=== PATIENT | male | born 1980 | race Caucasian/White ===

== ENCOUNTER → 2018-02-03 16:28 | Outpatient (CLI) | payer OTHER, SELFPAY ==
--- NOTE | 2018-02-03 16:32 | DI.RAD.S_ITS ---
PROCEDURE: XR SHOULDER LT MIN 2V INDICATIONS: L shoulder pain TECHNIQUE: 3 views of the shoulder were acquired. COMPARISON: [facility], , SHOULDER MINIMUM 2VIEW RIGHT, 07/25/2015, 10:36. FINDINGS: Bones: No fractures or dislocations. No suspicious bony lesions. Visualized ribs appear intact. Soft tissues: No suspicious soft tissue calcifications. IMPRESSION: No acute osseous abnormality of the left shoulder. Dictated by: Brayan Chaidez M.D. on 02/03/2018 at 15:59 Approved by: Brayan Chaidez M.D. on 02/03/2018 at 16:00
== END ==
PROVIDERS: Visit Provider Physician Assistant
DX: M25.512 Pain in left shoulder (principal)
CPT/HCPCS: 73030

== ENCOUNTER → 2019-12-09 07:21 | Outpatient (CLI) | payer OTHER, MEDICAID, SELFPAY ==
[2019-12-09 08:15] LABS: Add Manual Diff / Slide Review NO; Basophils Absolute Auto 100 /uL (0-100); Basophils Percent Auto 1.1 % (0-2); Eosinophils Absolute Auto 300 /uL (0-450); Eosinophils Percent Auto 4.1 % (2-4); Hemoglobin 15.9 g/dL (13.5-17.5); Lymphocytes Absolute Auto 1800 /uL (1100-4500); Lymphocytes Percent Auto 27.7 % (25-40); Mean Corpuscular HGB Conc 33.9 % (30-36); Mean Corpuscular Hemoglobin 29.7 PG (26-34); Mean Corpuscular Volume 87.6 fL (80-100); Monocytes Absolute Auto 700 /uL (0-900); Neutrophils Absolute Auto 3800 /uL (1500-7000); Neutrophils Percent Auto 57.1 % (50-75); Platelet Count 195 X10^3/uL (150-400); Red Blood Cell Count 5.36 X10^6/uL (4.5-5.9); Red Cell Distribution Width 14.1 % (11.6-14.8); White Blood Cell Count 6.6 X10^3/uL (4.5-11.0)
[2019-12-09 08:33] LABS: Hemoglobin A1C% w Est Avg Glu 5.5 % (4.0-6.0)
[2019-12-09 08:38] LABS: Alanine Aminotransferase 47 IU/L (<50); Albumin 4.2 g/dL (3.5-5.0); Albumin Globulin Ratio 1.7 (1.0-2.8); Alkaline Phosphatase 54 U/L (38-126); Aspartate Aminotransferase 33 IU/L (17-59); BUN Creatinine Ratio 14.9 (6-22); Bilirubin Total 0.4 mg/dL (0.2-1.3); Blood Urea Nitrogen 15 mg/dL (9-20); Calcium 9.9 mg/dL (8.4-10.2); Carbon Dioxide 31 mmol/L (22-32); Chloride 103 mmol/L (98-107); Cholesterol 157 mg/dL (140-199); Estimated Glomerular Filt Rate > 60.0 mL/min (>60); Globulin 2.5 g/dL (1.7-4.1); Glucose 103 mg/dL (70-100); HDL Cholesterol 56 mg/dL (40-60); HEMOLYSIS < 15 (0-50); LDL Cholesterol Calculated 81 mg/dL (<100); Sodium 138 mmol/L (137-145); Total Protein 6.7 g/dL (6.3-8.2); Triglycerides 98 mg/dL (35-150)
[2019-12-09 09:01] LABS: TSH w/ Reflex to FT4 2.25 uIU/mL (0.47-4.68)
== END ==
PROVIDERS: PCP Family Medicine; Referring Provider Family Medicine; Visit Provider Family Medicine
DX: Z68.41 Body mass index [BMI] 40.0-44.9, adult (principal)
CPT/HCPCS: 36415; 80053; 80061; 83036; 84443; 85025

== ENCOUNTER 2020-02-16 11:42 | Emergency (ER) | payer OTHER, MEDICAID, SELFPAY ==
[2020-02-16 11:46] VITALS: BP 164/96; PULSE 116; RESP 16; TEMP 37.3; O2SAT 99; BMI 43.9
[2020-02-16 12:04] LABS: Add Manual Diff / Slide Review NO; Basophils Absolute Auto 0 /uL (0-100); Basophils Percent Auto 0.4 % (0-2); Eosinophils Absolute Auto 200 /uL (0-450); Eosinophils Percent Auto 1.6 % (2-4); Hematocrit 45.9 % (41-53); Lymphocytes Absolute Auto 1700 /uL (1100-4500); Lymphocytes Percent Auto 14.4 % (25-40); Mean Corpuscular HGB Conc 32.7 % (30-36); Mean Corpuscular Hemoglobin 28.7 PG (26-34); Mean Corpuscular Volume 87.8 fL (80-100); Monocytes Absolute Auto 1100 /uL (0-900); Monocytes Percent Auto 9.1 % (3-14); Neutrophils Absolute Auto 8700 /uL (1500-7000); Neutrophils Percent Auto 74.5 % (50-75); Platelet Count 210 X10^3/uL (150-400); Red Blood Cell Count 5.23 X10^6/uL (4.5-5.9); Red Cell Distribution Width 13.7 % (11.6-14.8); White Blood Cell Count 11.7 X10^3/uL (4.5-11.0)
[2020-02-16 12:07] LABS: INR 1.1 (0.9-1.3); Prothrombin Time 12.3 SECONDS (10.1-12.7)
[2020-02-16 12:10] LABS: PTT Partial Thromboplastin Tim 33 SECONDS (26.4-36.2)
[2020-02-16 12:12] LABS: Alanine Aminotransferase 41 IU/L (<50); Albumin Globulin Ratio 1.3 (1.0-2.8); Alkaline Phosphatase 59 U/L (38-126); Aspartate Aminotransferase 25 IU/L (17-59); BUN Creatinine Ratio 13.9 (6-22); Bilirubin Total 0.6 mg/dL (0.2-1.3); Blood Urea Nitrogen 14 mg/dL (9-20); Calcium 9.1 mg/dL (8.4-10.2); Carbon Dioxide 30 mmol/L (22-32); Chloride 102 mmol/L (98-107); Estimated Glomerular Filt Rate > 60.0 mL/min (>60); Globulin 3.2 g/dL (1.7-4.1); Glucose 116 mg/dL (70-100); HEMOLYSIS < 15 (0-50); Lipase 58 U/L (23-300); Potassium 3.9 mmol/L (3.4-5.1); Sodium 135 mmol/L (137-145); Total Protein 7.2 g/dL (6.3-8.2)
--- NOTE | 2020-02-16 13:08 | DI.CT.S_ITS ---
PROCEDURE: CT ABDOMEN PELVIS W CON INDICATIONS: llq pain, fever TECHNIQUE: After the administration of intravenous contrast, 5 mm thick sections acquired from the diaphragm to the symphysis. 5 mm coronal and sagittal reformats were acquired. For radiation dose reduction, the following was used: automated exposure control, adjustment of mA and/or kV according to patient size. COMPARISON: None. FINDINGS: Image quality: Excellent. ABDOMEN: Lung bases: Lung bases are clear. Heart size is normal. Solid organs: Liver is normal in size and enhancement. Gallbladder appears normal. Biliary system is non dilated. Pancreas enhances normally. Spleen is normal in size and enhancement. No adrenal nodules. Kidneys demonstrate normal size and enhancement, without hydronephrosis. Peritoneum and bowel: Bowel loops demonstrate normal wall thickness and caliber. No free fluid or air. Nodes and vessels: No retroperitoneal or mesenteric adenopathy by size criteria. Aorta and inferior vena cava are normal in size. Miscellaneous: No ventral hernias. PELVIS: Genitourinary: Bladder wall thickness is normal. Miscellaneous: No inguinal hernias or adenopathy. At the left lower quadrant involving the descending colon as it transitions into the proximal sigmoid colon there is mild mural thickening and pericolonic edema but no pericolonic abscess. The findings are characteristic for acute diverticulitis. Bones: No suspicious bony lesions. No vertebral body compression fractures. IMPRESSION: Acute diverticulitis without peridiverticular abscess left lower quadrant. No additional abnormality seen. Dictated by: Isaiah Pastor M.D. on 02/16/2020 at 13:35 Approved by: Isaiah Pastor M.D. on 02/16/2020 at 13:36
[2020-02-16] MEDS: KETOROLAC 60 MG/2 ML VIAL 30 MG IV (14:01)
[2020-02-16] MEDS: SODIUM CHLORIDE 0.9% 1,000 ML 1000 ML IV (14:01)
[2020-02-16] MEDS: ONDANSETRON 4 MG/2 ML INJ IV (14:03)
[2020-02-16] MEDS: CIPROFLOXACIN 500 MG TABLET PO (14:58)
[2020-02-16] MEDS: metroNIDAZOLE 500 MG TABLET PO (14:59)
[2020-02-16 15:02] VITALS: BP 137/89; PULSE 89; RESP 12; O2SAT 100
--- NOTE | 2020-02-16 15:22 | ED.ABDPAIN ---
HPI - Abdominal Pain <MARCO Harrington - Last Filed: 02/16/20 16:49> General Chief Complaint: Abdominal Pain Stated Complaint: thinks diverticulitis, sent by walk in Time Seen by Provider: 02/16/20 13:01 Source: patient Mode of arrival: Ambulatory Limitations: no limitations History of Present Illness HPI narrative: The patient is a 39-year-old male former her smoker denies any pertinent medical history presents with a chief complaint of left lower quadrant pain. This been ongoing since Friday. He had a transient temperature over the weekend up to 100 .1. He complains of nausea, no vomiting. He states he thought he was constipated then had some diarrhea after taking Dulcolax. He denies any muscle aches or chills. Denies any abdominal her story or surgical history. He does note that he has a family history of diverticulitis. The patient denies any chest pain or shortness of breath. He states that he is concerned that he might have a hernia, though thinks he might be too overweight to feel it. Related Data Previous Rx's Medication Instructions Recorded bupropion HCl 75 mg tablet 75 mg PO DAILY #30 tab 12/08/19 trazodone 50 mg tablet 25 mg PO .qhs #30 tab 12/14/19 ciprofloxacin HCl 500 mg PO BID #14 tab 02/16/20 hydrocodone-acetaminophen [[place]o] 1 tab PO Q4-6H PRN #10 tab 02/16/20 ketorolac 10 mg PO TID PRN #14 tab 02/16/20 metronidazole 500 mg PO TID 7 Days #21 tab 02/16/20 ondansetron 4 mg PO Q6H PRN #20 tab 02/16/20 Allergies Allergy/AdvReac Type Severity Reaction Status Date / Time milk [MILK] Allergy Unknown Verified 02/16/20 11:46 ICE CREAM Allergy Unknown Uncoded 01/06/20 08:33 Review of Systems <MARCO Harrington - Last Filed: 02/16/20 16:49> Review of Systems Narrative: GENERAL: Denies chills, fatigue, malaise, fever, sweats. HEENT: Denies sinus pain, ear pain, sore throat, difficulty swallowing, dizziness. RESPIRATORY: Denies dyspnea, cough, wheezing, hemoptysis, sputum. CARDIOVASCULAR: Denies chest pain, palpitations, orthopnea, edema, GASTROINTESTINAL: See HPI : Denies dysuria, frequency, incontinence, hematuria, urinary retention. MUSCULOSKELETAL: denies weakness, joint pain, or bony pain SKIN: Denies rash, skin lesions, or other NEUROLOGIC: Denies weakness, headache, numbness, change in speech, confusion, seizures, incoordination. PSYCHIATRIC: No concerning psychosocial issues. 12 point review of systems is negative except for those stated above Patient History <MARCO Harrington - Last Filed: 02/16/20 16:49> Medical History Ankle pain (Chronic ~2009) Anxiety (Chronic ~2003) BMI 40.0-44.9, adult (Acute) Chicken pox (Resolved ~1988) Chronic back pain (Chronic ~2013) Chronic pain of left ankle (Acute) Depression (Chronic ~2003) LLQ abdominal pain (Acute) Right ankle instability (Acute) Shoulder pain (Chronic ~2015) Family History Father No problems noted. Mother No problems noted. Social History Smoking Status: Former smoker alcohol intake: current substance use type: does not use Smoking Status: Former smoker alcohol intake frequency: holidays/special occasions only Substance Use Type: does not use Exam <MARCO Harrington - Last Filed: 02/16/20 16:49> Narrative Exam Narrative: GENERAL: This is a well-nourished, well-developed patient, in no acute distress HEAD: Atraumatic. Normocephalic. No temporal or scalp tenderness. EYES: Pupils equal round and reactive. Extraocular motions intact. No scleral icterus. No injection or drainage. ENT: Nose without bleeding, purulent drainage or septal hematoma. Throat without erythema, tonsillar hypertrophy or exudate. Uvula midline. Airway patent. NECK: Trachea midline. No JVD or lymphadenopathy. Supple, nontender, no meningeal signs. CARDIOVASCULAR: Regular rate and rhythm RESPIRATORY: Clear to auscultation. Breath sounds equal bilaterally. No wheezes, rales, or rhonchi. No cough. No increased respiratory effort. No accessory muscle use GASTROINTESTINAL: Abdomen soft, non-tender, pain to palpation left lower quadrant. No pain to palpation right lower quadrant. No hepato-splenomegaly, or palpable masses. Slight guarding left lower quadrant. Active bowel sounds all 4 quadrants. EXTREMITIES: No clubbing, cyanosis, or edema. No joint tenderness, effusion, or edema noted. BACK: Nontender without deformity or crepitance. No flank tenderness. NEURO: AOx3. SKIN: No rash or erythema on visible skin Initial Vital Signs Initial Vital Signs: Vital Signs Temperature 99.2 F 02/16/20 11:46 Pulse Rate 116 H 02/16/20 11:46 Respiratory Rate 16 02/16/20 11:46 Blood Pressure 164/96 H 02/16/20 11:46 Pulse Oximetry 99 02/16/20 11:46 <Darrell Zaldivar MD - Last Filed: 02/17/20 08:16> Initial Vital Signs Initial Vital Signs: Vital Signs Temperature 99.2 F 02/16/20 11:46 Pulse Rate 116 H 02/16/20 11:46 Respiratory Rate 16 02/16/20 11:46 Blood Pressure 164/96 H 02/16/20 11:46 Pulse Oximetry 99 02/16/20 11:46 Course <MARCO Harrington - Last Filed: 02/16/20 16:49> Orders Ordered: Discontinued Medications Ciprofloxacin (Cipro) 500 mg PO NOW ONE Stop: 02/16/20 14:32 Last Admin: 02/16/20 14:58 Dose: 500 mg Documented by: AZUL Sodium Chloride (Normal Saline 0.9%) 1,000 mls @ 1,000 mls/hr IV BOLUS ONE Stop: 02/16/20 14:53 Last Infusion: 02/16/20 14:59 Dose: 0 mls/hr Documented by: Admin: 02/16/20 14:01 Dose: 1,000 mls/hr Documented by: AZUL Ketorolac Tromethamine (Toradol) 30 mg IV NOW ONE Stop: 02/16/20 13:55 Last Admin: 02/16/20 14:01 Dose: 30 mg Documented by: AZUL Metronidazole (Metronidazole) 500 mg PO NOW ONE Stop: 02/16/20 14:32 Last Admin: 02/16/20 14:59 Dose: 500 mg Documented by: AZUL Ondansetron HCl (Zofran) 4 mg IV NOW ONE Stop: 02/16/20 14:02 Last Admin: 02/16/20 14:03 Dose: 4 mg Documented by: AZUL Vital Signs Vital signs: Vital Signs - 8 hr 02/16/20 11:46 02/16/20 15:02 02/16/20 16:11 Temperature 99.2 F Pulse Rate 116 H 89 90 Respiratory Rate 16 12 Blood Pressure 164/96 H 137/89 124/77 Pulse Oximetry 99 100 94 <Darrell Zaldivar MD - Last Filed: 02/17/20 08:16> Orders Ordered: Discontinued Medications Ciprofloxacin (Cipro) 500 mg PO NOW ONE Stop: 02/16/20 14:32 Last Admin: 02/16/20 14:58 Dose: 500 mg Documented by: AZUL Sodium Chloride (Normal Saline 0.9%) 1,000 mls @ 1,000 mls/hr IV BOLUS ONE Stop: 02/16/20 14:53 Last Infusion: 02/16/20 14:59 Dose: 0 mls/hr Documented by: Admin: 02/16/20 14:01 Dose: 1,000 mls/hr Documented by: AZUL Ketorolac Tromethamine (Toradol) 30 mg IV NOW ONE Stop: 02/16/20 13:55 Last Admin: 02/16/20 14:01 Dose: 30 mg Documented by: AZUL Metronidazole (Metronidazole) 500 mg PO NOW ONE Stop: 02/16/20 14:32 Last Admin: 02/16/20 14:59 Dose: 500 mg Documented by: AZUL Ondansetron HCl (Zofran) 4 mg IV NOW ONE Stop: 02/16/20 14:02 Last Admin: 02/16/20 14:03 Dose: 4 mg Documented by: AZUL Vital Signs Vital signs: Vital Signs - 8 hr 02/16/20 11:46 02/16/20 15:02 02/16/20 16:11 Temperature 99.2 F Pulse Rate 116 H 89 90 Respiratory Rate 16 12 Blood Pressure 164/96 H 137/89 124/77 Pulse Oximetry 99 100 94 MDM - Abdominal Pain <MARCO Harrington - Last Filed: 02/16/20 16:49> Lab Data Attestation: I reviewed the patient's lab results. Result diagrams: 02/16/20 11:53 02/16/20 11:53 Labs: Lab Results 02/16/20 02/16/20 02/16/20 Range/Units 11:53 11:53 11:53 WBC 11.7 H (4.5-11.0) X10^3/uL RBC 5.23 (4.5-5.9) X10^6/uL Hgb 15.0 (13.5-17.5) g/dL Hct 45.9 (41-53) % MCV 87.8 (80-100) fL MCH 28.7 (26-34) PG MCHC 32.7 (30-36) % RDW 13.7 (11.6-14.8) % Plt Count 210 (150-400) X10^3/uL Neut % (Auto) 74.5 (50-75) % Lymph % (Auto) 14.4 L (25-40) % [place] % (Auto) 9.1 (3-14) % Eos % (Auto) 1.6 L (2-4) % Baso % (Auto) 0.4 (0-2) % Neut # (Auto) 8700 H (0370-3256) /uL Lymph # (Auto) 1700 (5750-4257) /uL [place] # (Auto) 1100 H (0-900) /uL Eos # (Auto) 200 (0-450) /uL Baso # (Auto) 0 (0-100) /uL PT 12.3 (10.1-12.7) SECONDS INR 1.1 (0.9-1.3) APTT 33 (26.4-36.2) SECONDS Sodium 135 L (137-145) mmol/L Potassium 3.9 (3.4-5.1) mmol/L Chloride 102 (98-107) mmol/L Carbon Dioxide 30 (22-32) mmol/L BUN 14 (9-20) mg/dL Creatinine 1.01 (0.66-1.25) mg/dL Estimated GFR > 60.0 (>60) mL/min BUN/Creatinine Ratio 13.9 (6-22) Glucose 116 H (70-100) mg/dL Calcium 9.1 (8.4-10.2) mg/dL Total Bilirubin 0.6 (0.2-1.3) mg/dL AST 25 (17-59) IU/L ALT 41 (<50) IU/L Alkaline Phosphatase 59 (38-126) U/L Total Protein 7.2 (6.3-8.2) g/dL Albumin 4.0 (3.5-5.0) g/dL Globulin 3.2 (1.7-4.1) g/dL Albumin/Globulin Ratio 1.3 (1.0-2.8) Lipase 58 (23-300) U/L Imaging Data CT scan - abdomen/pelvis: Radiologist's Impression: [facility] [address] [place] [id number] Scan Report Signed Patient: Bruno Orozco PMR#: [id number] : 1980Acct:[id number] Age/Sex: 39 / MDate of Service: 02/16/20 Loc: ED Accession Number: [id number] Procedure: CT abdomen pelvis w con Ordering Provider: Rebecca Camacho [employer]LOBAL PROGRAM MANAGER- PROCEDURE: CT ABDOMEN PELVIS W CON INDICATIONS: llq pain, fever TECHNIQUE: After the administration of intravenous contrast, 5 mm thick sections acquired from the diaphragm to the symphysis. 5 mm coronal and sagittal reformats were acquired. For radiation dose reduction, the following was used: automated exposure control, adjustment of mA and/or kV according to patient size. COMPARISON: None. FINDINGS: Image quality: Excellent. ABDOMEN: Lung bases: Lung bases are clear. Heart size is normal. Solid organs: Liver is normal in size and enhancement. Gallbladder appears normal. Biliary system is non dilated. Pancreas enhances normally. Spleen is normal in size and enhancement. No adrenal nodules. Kidneys demonstrate normal size and enhancement, without hydronephrosis. Peritoneum and bowel: Bowel loops demonstrate normal wall thickness and caliber. No free fluid or air. Nodes and vessels: No retroperitoneal or mesenteric adenopathy by size criteria. Aorta and inferior vena cava are normal in size. Miscellaneous: No ventral hernias. PELVIS: Genitourinary: Bladder wall thickness is normal. Miscellaneous: No inguinal hernias or adenopathy. At the left lower quadrant involving the descending colon as it transitions into the proximal sigmoid colon there is mild mural thickening and pericolonic edema but no pericolonic abscess. The findings are characteristic for acute diverticulitis. Bones: No suspicious bony lesions. No vertebral body compression fractures. IMPRESSION: Acute diverticulitis without peridiverticular abscess left lower quadrant. No additional abnormality seen. Dictated by: Isaiah Pastor M.D. on 02/16/2020 at 13:35 Approved by: Isaiah Pastor M.D. on 02/16/2020 at 13:36 [facility] Narrative Medical decision making narrative: The patient is a 39-year-old male who presents with a chief complaint of left lower quadrant pain since Friday. He has slight leukocytosis to 11.7. He has had transient low-grade temperatures as well as stool changes. Given a pain to palpation left lower quadrant, CT was obtained to help evaluate for diverticulitis. This came back with acute diverticulitis with no evidence of abscess. Thus the patient was started on Flagyl and ciprofloxacin. I discussed at length not combining alcohol with the Flagyl, monitoring for tendon issues with the Cipro. Discussed the black box warning of possible tendon inflammation, tendonitis or tendon rupture. Patient like to proceed with Flagyl/Cipro therapy. Patient was given Toradol and Zofran in the emergency department, was given small prescription of [place]o. Encouraged follow-up with primary care provider in the next 48-72 hours as well as come back to the ER for acute concerns such as inability keep down fluids abdominal pain with high fevers etcetera. Discussed dietary changes at length. Patient has no questions or concerns upon discharge and states understanding return precautions as well as follow-up care with primary care provider. Patient is able to tolerate p.o. antibiotics as well as fluids prior to discharge. He appears well and nontoxic throughout his stay in the ER. <Darrell Zaldivar MD - Last Filed: 02/17/20 08:16> Lab Data Labs: Lab Results 02/16/20 02/16/20 02/16/20 Range/Units 11:53 11:53 11:53 WBC 11.7 H (4.5-11.0) X10^3/uL RBC 5.23 (4.5-5.9) X10^6/uL Hgb 15.0 (13.5-17.5) g/dL Hct 45.9 (41-53) % MCV 87.8 (80-100) fL MCH 28.7 (26-34) PG MCHC 32.7 (30-36) % RDW 13.7 (11.6-14.8) % Plt Count 210 (150-400) X10^3/uL Neut % (Auto) 74.5 (50-75) % Lymph % (Auto) 14.4 L (25-40) % [place] % (Auto) 9.1 (3-14) % Eos % (Auto) 1.6 L (2-4) % Baso % (Auto) 0.4 (0-2) % Neut # (Auto) 8700 H (3571-8218) /uL Lymph # (Auto) 1700 (3552-3479) /uL [place] # (Auto) 1100 H (0-900) /uL Eos # (Auto) 200 (0-450) /uL Baso # (Auto) 0 (0-100) /uL PT 12.3 (10.1-12.7) SECONDS INR 1.1 (0.9-1.3) APTT 33 (26.4-36.2) SECONDS Sodium 135 L (137-145) mmol/L Potassium 3.9 (3.4-5.1) mmol/L Chloride 102 (98-107) mmol/L Carbon Dioxide 30 (22-32) mmol/L BUN 14 (9-20) mg/dL Creatinine 1.01 (0.66-1.25) mg/dL Estimated GFR > 60.0 (>60) mL/min BUN/Creatinine Ratio 13.9 (6-22) Glucose 116 H (70-100) mg/dL Calcium 9.1 (8.4-10.2) mg/dL Total Bilirubin 0.6 (0.2-1.3) mg/dL AST 25 (17-59) IU/L ALT 41 (<50) IU/L Alkaline Phosphatase 59 (38-126) U/L Total Protein 7.2 (6.3-8.2) g/dL Albumin 4.0 (3.5-5.0) g/dL Globulin 3.2 (1.7-4.1) g/dL Albumin/Globulin Ratio 1.3 (1.0-2.8) Lipase 58 (23-300) U/L Discharge Plan Departure Patient Disposition: Home Clinical Impression: Diverticulitis Discharge Date/Time: 02/16/20 16:11 Instructions: Diverticulitis (Alternative Therapy), DI for Diverticulitis, DI for Abdominal Pain-Adult Activity Restrictions/Additional Instructions: Thank you for trusting us with your care today. As discussed, you have diverticulitis. I sent 5 prescriptions to [facility]. This includes 2 different antibiotics. Do not drink alcohol on metronidazole. As discussed, please monitor for tendon pain on the ciprofloxacin. You take both antibiotics. I also sent Toradol or ketorolac for pain, as well as hydrocodone/Tylenol for pain I have given you a prescription of Toradol. This is an NSAID. Do not combine it with other NSAIDs such as Aleve or ibuprofen. I suggest taking it with some food, as it can irritate your stomach. I have given you a prescription of a narcotic for pain. Be aware that this can be constipating and sedating. I encouraged taking with a stool softener, pushing fluids and fiber. Do not take and drive, operate heavy machinery, etc. Do not combine it with any other sedating substances such as alcohol. The combination of narcotics and alcohol and/or other sedatives can be lethal. Please follow-up with primary care provider next 48-72 hours. As discussed, please come back to the emergency department for any acute concerns such as abdominal pain with fever, inability keep down fluids etcetera. Please start with a very light, clear liquid diet. Progress as able, but avoid deep fried fatty foods, spicy foods, citrus foods as these can all irritate your stomach. Prescriptions: New ondansetron 4 mg tablet,disintegrating 4 mg PO Q6H PRN (Reason: nausea and vomiting) Qty: 20 RF: 0 ketorolac 10 mg tablet 10 mg PO TID PRN (Reason: pain) Qty: 14 RF: 0 ciprofloxacin HCl 500 mg tablet 500 mg PO BID Qty: 14 RF: 0 metronidazole 500 mg tablet 500 mg PO TID 7 Days Qty: 21 RF: 0 hydrocodone-acetaminophen [[place]o] 5-325 mg tablet 1 tab PO Q4-6H PRN (Reason: pain) Qty: 10 RF: 0 No Action bupropion HCl 75 mg tablet 75 mg PO DAILY Qty: 30 RF: 1 trazodone 50 mg tablet 25 mg PO .qhs Qty: 30 RF: 0 Referrals: Maxwell,Ronny, DO [Primary Care Provider] - <Darrell Zaldivar MD - Last Filed: 02/17/20 08:16> Cosign ED Attending Cosignature Attestation: I was immediately available in the department for consultation. This documentation has been reviewed and I agree with assessment and plan. Supervised by Darrell Zaldivar MD
[2020-02-16 16:11] VITALS: BP 124/77; PULSE 90; O2SAT 94
== END 2020-02-16 16:11 | disposition home or self-care (01) ==
PROVIDERS: Emergency Medicine; Emergency Provider Nurse Practitioner Family; PCP Family Medicine
DX: K57.92 Diverticulitis of intestine, part unspecified, without perforation or abscess without bleeding (principal); R11.0 Nausea; R50.9 Fever, unspecified
CPT/HCPCS: 36415; 74177; 80053; 83690; 85025; 85610; 85730; 93005; 96361; 96374; 96375; 99284; J1885; J2405; Q9967

== ENCOUNTER → 2020-07-05 11:48 | Outpatient (CLI) | payer OTHER, MEDICAID, SELFPAY ==
--- NOTE | 2020-07-05 11:50 | DI.RAD.S_ITS ---
PROCEDURE: XR KNEE LT 3V INDICATIONS: LT knee pain TECHNIQUE: 3 views of the knee were acquired. COMPARISON: None. FINDINGS: Bones: No fractures or dislocations. No suspicious bony lesions. Minimal medial compartment narrowing, suggestive of early degenerative change. Soft tissues: Prominent joint effusion. No suspicious soft tissue calcifications. IMPRESSION: Prominent effusion. No visualized acute fracture or dislocation. However, if clinical concern and/or pain persist, short interval imaging followup in 7-10 days is recommended, as occult injury cannot be definitively excluded. Dictated by: Bettie Villalta M.D. on 07/05/2020 at 17:37 Approved by: Bettie Villalta M.D. on 07/05/2020 at 17:37
== END ==
PROVIDERS: PCP Family Medicine; Referring Provider Family Medicine; Visit Provider Family Medicine
DX: M25.562 Pain in left knee (principal); M25.462 Effusion, left knee
CPT/HCPCS: 73562

== ENCOUNTER → 2021-06-15 08:25 | Outpatient (CLI) | payer OTHER, MEDICAID, SELFPAY ==
--- NOTE | 2021-06-15 08:27 | DI.RAD.S_ITS ---
PROCEDURE: XR ANKLE RT MIN 3V INDICATIONS: pain TECHNIQUE: 3 views of the ankle were acquired. COMPARISON: [facility], , ANKLE 3 VIEWS LEFT, 08/30/2013, 20:25. FINDINGS: Bones: No fractures or dislocations. Ankle mortise is normally aligned. No suspicious bony lesions. Small plantar calcaneal enthesophyte. Soft tissues: Small tibiotalar joint effusion. Diffuse edema. IMPRESSION: No acute osseous abnormality. Dictated by: Haja Pedraza M.D. on 06/15/2021 at 9:15 Approved by: Haja Pedraza M.D. on 06/15/2021 at 9:17
== END ==
PROVIDERS: PCP Family Medicine; Referring Provider Family Medicine; Visit Provider Family Medicine
DX: S93.401A Sprain of unspecified ligament of right ankle, initial encounter (principal); X58.XXXA Exposure to other specified factors, initial encounter
CPT/HCPCS: 73610

== ENCOUNTER 2021-08-30 10:30 | Outpatient (RCR) | payer OTHER, MEDICAID, SELFPAY ==
--- NOTE | 2021-07-17 15:48 | PT.OIE ---
Current Diagnoses Sprain of unspecified ligament of right ankle, initial encounter (07/17/21) Past Medical History (Last Updated 06/15/21 @ 08:18 by Ronny Arreola DO) Acute pain of left knee Ankle pain (~2009) Anxiety (~2003) BMI 40.0-44.9, adult Chicken pox (~1988) Chronic back pain (~2013) Chronic pain of left ankle Constipation Depression (~2003) Diverticulitis Knee effusion, left Right ankle instability Right ankle sprain Shoulder pain (~2015) Visit Care Team Role Provider Type Ronny Arreola DO Attending Provider Physician Family Provider Primary Care Provider Referring Provider Specialty: [facility] Practice Address: [address] [place] [address], [facility] Email: Physical Therapy Initial Evaluation PT-OP-A Visit Information Start: 07/10/21 12:28 Freq: Status: Active Protocol: Document 07/17/21 07:32 AMB (Rec: 07/17/21 08:21 AMB [id number]) Out-Patient Physical Therapy Visit Information Visit Information Visit Type Treatment Note Visit Note 24 treatment units Visit Start Time 07:30 Visit Stop Time 08:15 Total Visit Minutes 45 Visit Number 1 PT-OP-B Current Condition Start: 07/10/21 12:28 Freq: Status: Active Protocol: Document 07/17/21 07:32 AMB (Rec: 07/17/21 08:21 AMB [id number]) Current Condition History of Current Condition Onset Date 1.5 months ago Current Complaints R ankle pain s/p sprain History of Current Condition Sitting cross legged, driving pushing the gas pedal, working out all increase Bruno' pain. He had significant swelling after twisting his ankle while stepping off of a curb, and has not been able to return to his prior level of function of walking the dog due to continued pain. He does have history of prior ankle sprains , especially on the left side. Treatment Goals Patient/Caregiver Goals Be able to walk/sit down on the floor/stand up/workout without ankle pain. Prior Functional Status Baseline Function- ADL's Independent Baseline Function- Mobility Independent Current Functional Impairments (Reported) Functional Limitations- ADL's Pain with ambulation and advanced transfers, having to modify workout due to ankle pain Personal Factors Other Personal Factors That May Effect BMI 40-45 Therapy/Recovery PT-OP-C Subjective Start: 07/10/21 12:28 Freq: Status: Active Protocol: Document 07/17/21 07:30 AMB (Rec: 07/17/21 12:01 AMB [id number]) Patient Questionnaires Lower Extremity Functional Scale LEFS Score 23 PT-OP-D Balance Start: 07/10/21 12:28 Freq: Status: Active Protocol: Document 07/17/21 07:30 AMB (Rec: 07/17/21 12:01 AMB [id number]) OP-PT Balance Assessment Standing Balance Standing Balance Comments single leg stance limited to 2 sec on R, 5-7 sec on L. pain limits Greer Fall Scale Copyright Permission PT-OP-F Manual Assessment Start: 07/10/21 12:28 Freq: Status: Active Protocol: Document 07/17/21 07:30 AMB (Rec: 07/17/21 13:01 AMB [id number]) Manual Assessments Soft Tissue Assessment Soft Tissue Mobility Assessment Tenderness over ATFL and into fibularis muscles. Swelling throughout ankle, pt does report some tenderness over achilles with heel raise. PT-OP-G Mobility & Gait Start: 07/10/21 12:28 Freq: Status: Active Protocol: Document 07/17/21 07:30 AMB (Rec: 07/17/21 12:01 AMB [id number]) OP Gait Assessment Comments Gait Comments Decreased push off on the right during terminal stance. PT-OP-J Posture/Palpation/Skin Start: 07/10/21 12:28 Freq: Status: Active Protocol: Document 07/17/21 07:30 AMB (Rec: 07/17/21 12:01 AMB [id number]) Skin Assessment Circumference Measurement 2 Location R ankle Measurement (Centimeters) 30 1 Location L ankle Measurement (Centimeters) 29 PT-OP-K Range of Motion Start: 07/10/21 12:28 Freq: Status: Active Protocol: Document 07/17/21 07:30 AMB (Rec: 07/17/21 12:01 AMB [id number]) Ankle and Foot Goniometric Range of Motion Ankle and Foot Right Passive Testing Position Sitting Dorsiflexion with Knee Flexed 5 Plantarflexion 50 Inversion 30 Eversion 5 Left Passive Testing Position Sitting Dorsiflexion with Knee Flexed 8 Plantarflexion 50 Inversion 30 Eversion 20 PT-OP-M Strength Start: 07/10/21 12:28 Freq: Status: Active Protocol: Document 07/17/21 07:30 AMB (Rec: 07/17/21 13:01 AMB [id number]) Ankle/Foot Strength Ankle and Foot Manual Muscle Testing Right Dorsiflexion (L4) 4 Good Plantarflexion (S1) 4 Good Inversion 4 Good Eversion (S1) 4- Good- Left Dorsiflexion (L4) 5 Normal Plantarflexion (S1) 4+ Good+ Inversion 5 Normal Eversion (S1) 5 Normal PT-OP-Q Treatments Start: 07/10/21 12:28 Freq: Status: Active Protocol: Document 07/17/21 07:30 AMB (Rec: 07/17/21 15:43 AMB [id number]) Therapeutic Exercises Sitting Exercises 1 Sitting Exercise Name AROM inversion and eversion Reps/Minutes 2x20 PT-OP-T Assessment and Plan Start: 07/10/21 12:28 Freq: Status: Active Protocol: Document 07/17/21 07:30 AMB (Rec: 07/17/21 13:01 AMB [id number]) Physical Therapy Assessment Rehab Potential Rehabilitation Potential Good Evaluation Complexity Number of Personal Factors/Comorbidities 1-2 Number of Body Systems Impaired 4 or More Clinical Presentation at Evaluation Stable Impairments Impairments Activity Tolerance,Balance, Edema,Functional Activities, Gait,Pain,ROM,Strength Goals balance Mcc Goal (LTG) Bruno will balance on his right foot for 15 seconds or greater. LTG Duration 8 weeks transfers Short Term Goal (STG) Bruno will perform a floor transfer with 2/10 ankle pain or less. STG Duration 4 weeks Mcc Goal (LTG) Bruno will sit cross legged on the floor for 10 minutes without ankle pain so that he can play with his children. LTG Duration 8 weeks Two Impairment pain Short Term Goal (STG) Bruno will ambulate over gravel/grass/curbs for 10 minutes without an increase in his baseline pain. STG Duration 4 weeks Change Coordinator Goal (LTG) Bruno will don/doff his socks and shoes without an increase in pain. LTG Duration 8 weeks One Impairment ROM Short Term Goal (STG) Bruno will improve his pain free ankle eversion to at least 15 degrees. STG Duration 4 weeks Assessment Summary Assessment Bruno attends physical therapy with a recent ankle sprain and continued pain over ATFL and into his fibularis muscles /tendons. He has a history of chronic ankle sprains bilaterally. He continues to have pain with any activities that require even small mediolateral movements like donning/doffing shoes, single leg balance, and ambulating over uneven surfaces. He continues to have swelling, pain, ROM restriction and weakness in the ankle. He will benefit from physical therapy to address the above impairments. Physical Therapy Plan Frequency and Duration Frequency of Treatment 2x/Week Duration of Treatment 8 weeks Plan of Care Start Date 07/17/21 Plan of Care End Date 09/11/21 Therapeutic Interventions Therapeutic Interventions Balance Training,Gait Training ,Home Exercise Program,Joint Mobilizations,Manual Therapy, Neuromuscular Re-education, Self-Care/Home Management,Soft Tissue Mobilization, Therapeutic Activities, Therapeutic Exercises Modalities Cold Pack/Ice Massage,Electric Stimulation,Hot Packs Next Visit Focus/Plan Next Note Type Treatment Note Next Visit Plan Review AROM HEP, continue to encourage edema management, progress balance, can try T band resistance if tolerated.
--- NOTE | 2021-07-17 15:50 | PT.OPPOC ---
Physical, Occupational & Speech Therapy At [facility] Current Diagnoses Sprain of unspecified ligament of right ankle, initial encounter (07/17/21) Visit Care Team Role Provider Type Ronny Arreola DO Attending Provider Physician Family Provider Primary Care Provider Referring Provider Specialty: Family Practice Address: [address] [place] [address], [facility] Email: Plan Of Care PT-OP-T Assessment and Plan Start: 07/10/21 12:28 Freq: Status: Active Protocol: Document 07/17/21 07:30 AMB (Rec: 07/17/21 13:01 AMB [id number]) Physical Therapy Assessment Rehab Potential Rehabilitation Potential Good Evaluation Complexity Number of Personal Factors/Comorbidities 1-2 Number of Body Systems Impaired 4 or More Clinical Presentation at Evaluation Stable Impairments Impairments Activity Tolerance,Balance, Edema,Functional Activities, Gait,Pain,ROM,Strength Goals balance Manager Combination Goal (LTG) Bruno will balance on his right foot for 15 seconds or greater. LTG Duration 8 weeks transfers Short Term Goal (STG) Bruno will perform a floor transfer with 2/10 ankle pain or less. STG Duration 4 weeks Manager Combination Goal (LTG) Bruno will sit cross legged on the floor for 10 minutes without ankle pain so that he can play with his children. LTG Duration 8 weeks Two Impairment pain Short Term Goal (STG) Bruno will ambulate over gravel/grass/curbs for 10 minutes without an increase in his baseline pain. STG Duration 4 weeks Penitentiary Goal (LTG) Bruno will don/doff his socks and shoes without an increase in pain. LTG Duration 8 weeks One Impairment ROM Short Term Goal (STG) Bruno will improve his pain free ankle eversion to at least 15 degrees. STG Duration 4 weeks Assessment Summary Assessment Bruno attends physical therapy with a recent ankle sprain and continued pain over ATFL and into his fibularis muscles /tendons. He has a history of chronic ankle sprains bilaterally. He continues to have pain with any activities that require even small mediolateral movements like donning/doffing shoes, single leg balance, and ambulating over uneven surfaces. He continues to have swelling, pain, ROM restriction and weakness in the ankle. He will benefit from physical therapy to address the above impairments. Physical Therapy Plan Frequency and Duration Frequency of Treatment 2x/Week Duration of Treatment 8 weeks Plan of Care Start Date 07/17/21 Plan of Care End Date 09/11/21 Therapeutic Interventions Therapeutic Interventions Balance Training,Gait Training ,Home Exercise Program,Joint Mobilizations,Manual Therapy, Neuromuscular Re-education, Self-Care/Home Management,Soft Tissue Mobilization, Therapeutic Activities, Therapeutic Exercises Modalities Cold Pack/Ice Massage,Electric Stimulation,Hot Packs Next Visit Focus/Plan Next Note Type Treatment Note Next Visit Plan Review AROM HEP, continue to encourage edema management, progress balance, can try T band resistance if tolerated. Plan of Care Dates Plan of Care Start Date 07/17/21 Plan of Care End Date 09/11/21 Electronically Signed by: Tg Zapata, PT 07/17/21 [id number] Please Sign and Return: I have reviewed this Plan of Care and certify that the skilled therapy services above are required to meet the patient?s needs. Physician Signature Date Printed Name and Credentials Clinical Instructor Signature Printed Name and Credentials
--- NOTE | 2021-07-20 08:20 | PT.OTN ---
Current Diagnoses Sprain of unspecified ligament of right ankle, initial encounter (07/20/21) Physical Therapy Treatment Note PT-OP-A Visit Information Start: 07/10/21 12:28 Freq: Status: Active Protocol: Document 07/20/21 07:31 SP (Rec: 07/20/21 08:17 SP [id number]) Out-Patient Physical Therapy Visit Information Visit Information Visit Type Treatment Note Visit Start Time 07:31 Visit Stop Time 08:20 Total Visit Minutes 49 Visit Number 2 Number of FILTER SCREEN CLEANER Visits 1 PT-OP-B Current Condition Start: 07/10/21 12:28 Freq: Status: Active Protocol: Document 07/17/21 07:32 AMB (Rec: 07/17/21 08:21 AMB [id number]) Current Condition History of Current Condition Onset Date 1.5 months ago Current Complaints R ankle pain s/p sprain History of Current Condition Sitting cross legged, driving pushing the gas pedal, working out all increase Bruno' pain. He had significant swelling after twisting his ankle while stepping off of a curb, and has not been able to return to his prior level of function of walking the dog due to continued pain. He does have history of prior ankle sprains , especially on the left side. Treatment Goals Patient/Caregiver Goals Be able to walk/sit down on the floor/stand up/workout without ankle pain. 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 Compliant with R ankle ROM HEP IV/EV stated still feels painful but not worse with exercises, pain worse when doing gets out of car or when performs twisting motions. States doesn'st use ice at home but does elevate ankle end of day. PT-OP-D Balance Start: 07/10/21 12:28 Freq: Status: Active Protocol: Document 07/17/21 07:30 AMB (Rec: 07/17/21 12:01 AMB [id number]) OP-PT Balance Assessment Standing Balance Standing Balance Comments single leg stance limited to 2 sec on R, 5-7 sec on L. pain limits Greer Fall Scale Copyright Permission PT-OP-F Manual Assessment Start: 07/10/21 12:28 Freq: Status: Active Protocol: Document 07/17/21 07:30 AMB (Rec: 07/17/21 13:01 AMB [id number]) Manual Assessments Soft Tissue Assessment Soft Tissue Mobility Assessment Tenderness over ATFL and into fibularis muscles. Swelling thorought ankle, pt does report some tenderness over achilles with heel raise. PT-OP-G Mobility & Gait Start: 07/10/21 12:28 Freq: Status: Active Protocol: Document 07/17/21 07:30 AMB (Rec: 07/17/21 12:01 AMB [id number]) OP Gait Assessment Comments Gait Comments Decreased push off on the right during terminal stance. PT-OP-J Posture/Palpation/Skin Start: 07/10/21 12:28 Freq: Status: Active Protocol: Document 07/17/21 07:30 AMB (Rec: 07/17/21 12:01 AMB [id number]) Skin Assessment Circumference Measurement 2 Location R ankle Measurement (Centimeters) 30 1 Location L ankle Measurement (Centimeters) 29 PT-OP-K Range of Motion Start: 07/10/21 12:28 Freq: Status: Active Protocol: Document 07/17/21 07:30 AMB (Rec: 07/17/21 12:01 AMB [id number]) Ankle and Foot Goniometric Range of Motion Ankle and Foot Right Passive Testing Position Sitting Dorsiflexion with Knee Flexed 5 Plantarflexion 50 Inversion 30 Eversion 5 Left Passive Testing Position Sitting Dorsiflexion with Knee Flexed 8 Plantarflexion 50 Inversion 30 Eversion 20 PT-OP-M Strength Start: 07/10/21 12:28 Freq: Status: Active Protocol: Document 07/17/21 07:30 AMB (Rec: 07/17/21 13:01 AMB [id number]) Ankle/Foot Strength Ankle and Foot Manual Muscle Testing Right Dorsiflexion (L4) 4 Good Plantarflexion (S1) 4 Good Inversion 4 Good Eversion (S1) 4- Good- Left Dorsiflexion (L4) 5 Normal Plantarflexion (S1) 4+ Good+ Inversion 5 Normal Eversion (S1) 5 Normal PT-OP-Q Treatments Start: 07/10/21 12:28 Freq: Status: Active Protocol: Document 07/20/21 07:31 SP (Rec: 07/20/21 08:17 SP [id number]) Therapeutic Exercises Sitting Exercises 4 way ankle Sitting Exercise Name PF, DF, IV, EV-added to HEP Side right Resistance TB #1 Reps/Minutes x10 each if tolerated Comments cued slow eccentric return, pain increased w/ IV TB so hold this direction arch lift Sitting Exercise Name added to HEP Side right Reps/Minutes 5 sec hold x10 Comments ok response, not worse pain. BAPS Sitting Exercise Name DF/PF, IV/ EV- added to HEP over tennis ball assimulation Side right Resistance Lvl 3 Equipment Used BAPS Reps/Minutes x10 reps each direction Comments cued slow pacing quality movement, not pain limited EV 1 Sitting Exercise Name AROM inversion and eversion Side right Reps/Minutes x10 review Comments no increase pain. Manual Therapy Treatment Joint Mobilizations ankle mobs Joint R talocrual PA, calcaneus Med/ Lat, 1-5 MTPs PA Grade II Body Position Sitting Comments fair feedback response feels ok, improved ankle EV ROM during BAPS post manual Taping K taping R ankle Body Location R lateral ankle Treatment Focus support EV Type of Tape Kinesio Tape Skin Inspection normal color/texture Comments stable lateral ankle, assist peroneal musculature, good feedback response, understands can remove in 1- 4 days if response well- understands adverse affects: reddness, itching response and remove if experiences. Has had on shoulder in past and did well/ helpful. Self-Care/Home Management Treatment Education Patient Education Home Exercise Program,Pain Management Other Education FILTER SCREEN CLEANER educated use of CP for assist with pain mgt and elevation to support swelling mgt when can work into his day , verbalized understanding. PT-OP-R Modalities Start: 07/10/21 12:28 Freq: Status: Active Protocol: Document 07/20/21 07:31 SP (Rec: 07/20/21 08:17 SP [id number]) Hot Pack/Cold Pack Treatment CP Location R ankle PT-OP-T Assessment and Plan Start: 07/10/21 12:28 Freq: Status: Active Protocol: Document 07/20/21 07:31 SP (Rec: 07/20/21 08:17 SP [id number]) Physical Therapy Assessment Goals balance Detention Goal (LTG) Bruno will balance on his right foot for 15 seconds or greater. LTG Duration 8 weeks transfers Short Term Goal (STG) Bruno will perform a floor transfer with 2/10 ankle pain or less. STG Duration 4 weeks Detention Goal (LTG) Bruno will sit cross legged on the floor for 10 minutes without ankle pain so that he can play with his children. LTG Duration 8 weeks Two Impairment pain Short Term Goal (STG) Bruno will ambulate over gravel/grass/curbs for 10 minutes without an increase in his baseline pain. STG Duration 4 weeks Detention Goal (LTG) Bruno will don/doff his socks and shoes without an increase in pain. LTG Duration 8 weeks One Impairment ROM Short Term Goal (STG) Bruno will improve his pain free ankle eversion to at least 15 degrees. STG Duration 4 weeks Assessment Summary Assessment Pt fair response to ther ex, no worse pain with ther ex except R ankle IV so instructed to hold this direction for now. Initiated arch lift, TB and BAPS (over tennis ball) slow controlled motion for strengthening initiation with fair response. Responded well to CP and verbalized within corporate at home for pain and swelling mgt. Physical Therapy Plan Frequency and Duration Frequency of Treatment 2x/Week Duration of Treatment 8 weeks Plan of Care Start Date 07/17/21 Plan of Care End Date 09/11/21 Therapeutic Interventions Therapeutic Interventions Balance Training,Gait Training ,Home Exercise Program,Joint Mobilizations,Manual Therapy, Neuromuscular Re-education, Self-Care/Home Management,Soft Tissue Mobilization, Therapeutic Activities, Therapeutic Exercises Modalities Cold Pack/Ice Massage,Electric Stimulation,Hot Packs Next Visit Focus/Plan Next Note Type Treatment Note Next Visit Plan Review HEP, including response to added arch lift and TB added last tx. POC: Continue to encourage edema management, progress balance.
--- NOTE | 2021-07-24 08:17 | PT.OTN ---
Current Diagnoses Sprain of unspecified ligament of right ankle, initial encounter (07/24/21) Physical Therapy Treatment Note PT-OP-A Visit Information Start: 07/10/21 12:28 Freq: Status: Active Protocol: Document 07/24/21 07:31 SP (Rec: 07/24/21 08:16 SP [id number]) Out-Patient Physical Therapy Visit Information Visit Information Visit Type Treatment Note Visit Start Time 07:31 Visit Stop Time 08:17 Total Visit Minutes 44 Visit Number 3 Number of KNITTING TESTER Visits 2 PT-OP-B Current Condition Start: 07/10/21 12:28 Freq: Status: Active Protocol: Document 07/17/21 07:32 AMB (Rec: 07/17/21 08:21 AMB [id number]) Current Condition History of Current Condition Onset Date 1.5 months ago Current Complaints R ankle pain s/p sprain History of Current Condition Sitting cross legged, driving pushing the gas pedal, working out all increase Bruno' pain. He had significant swelling after twisting his ankle while stepping off of a curb, and has not been able to return to his prior level of function of walking the dog due to continued pain. He does have history of prior ankle sprains , especially on the left side. Treatment Goals Patient/Caregiver Goals Be able to walk/sit down on the floor/stand up/workout without ankle pain. Prior Functional Status Baseline Function- ADL's Independent Baseline Function- Mobility Independent Current Functional Impairments (Reported) Functional Limitations- ADL's Pain with ambulation and advanced transfers, having to modify workout due to ankle pain Personal Factors Other Personal Factors That May Effect BMI 40-45 Therapy/Recovery PT-OP-C Subjective Start: 07/10/21 12:28 Freq: Status: Active Protocol: Document 07/24/21 07:31 SP (Rec: 07/24/21 08:16 SP [id number]) OP-PT Subjective Patient Comments Patient Comments Pt reports doing better overall. The new exercises do hurt but feel helpful. Compliant with HEP at least 1x /day. Pain always idles about 3-4/10 but more when gets out of car, even just sitting hurts. Can tell when on feet more. Pt reports no adverse affects to K taping and found was helpful,would like reapplied, came off in shower. PT-OP-D Balance Start: 07/10/21 12:28 Freq: Status: Active Protocol: Document 07/17/21 07:30 AMB (Rec: 07/17/21 12:01 AMB [id number]) OP-PT Balance Assessment Standing Balance Standing Balance Comments single leg stance limited to 2 sec on R, 5-7 sec on L. pain limits Greer Fall Scale Copyright Permission PT-OP-F Manual Assessment Start: 07/10/21 12:28 Freq: Status: Active Protocol: Document 07/17/21 07:30 AMB (Rec: 07/17/21 13:01 AMB [id number]) Manual Assessments Soft Tissue Assessment Soft Tissue Mobility Assessment Tenderness over ATFL and into fibularis muscles. Swelling thorought ankle, pt does report some tenderness over achilles with heel raise. PT-OP-G Mobility & Gait Start: 07/10/21 12:28 Freq: Status: Active Protocol: Document 07/17/21 07:30 AMB (Rec: 07/17/21 12:01 AMB [id number]) OP Gait Assessment Comments Gait Comments Decreased push off on the right during terminal stance. PT-OP-J Posture/Palpation/Skin Start: 07/10/21 12:28 Freq: Status: Active Protocol: Document 07/17/21 07:30 AMB (Rec: 07/17/21 12:01 AMB [id number]) Skin Assessment Circumference Measurement 2 Location R ankle Measurement (Centimeters) 30 1 Location L ankle Measurement (Centimeters) 29 PT-OP-K Range of Motion Start: 07/10/21 12:28 Freq: Status: Active Protocol: Document 07/17/21 07:30 AMB (Rec: 07/17/21 12:01 AMB [id number]) Ankle and Foot Goniometric Range of Motion Ankle and Foot Right Passive Testing Position Sitting Dorsiflexion with Knee Flexed 5 Plantarflexion 50 Inversion 30 Eversion 5 Left Passive Testing Position Sitting Dorsiflexion with Knee Flexed 8 Plantarflexion 50 Inversion 30 Eversion 20 PT-OP-M Strength Start: 07/10/21 12:28 Freq: Status: Active Protocol: Document 07/17/21 07:30 AMB (Rec: 07/17/21 13:01 AMB [id number]) Ankle/Foot Strength Ankle and Foot Manual Muscle Testing Right Dorsiflexion (L4) 4 Good Plantarflexion (S1) 4 Good Inversion 4 Good Eversion (S1) 4- Good- Left Dorsiflexion (L4) 5 Normal Plantarflexion (S1) 4+ Good+ Inversion 5 Normal Eversion (S1) 5 Normal PT-OP-Q Treatments Start: 07/10/21 12:28 Freq: Status: Active Protocol: Document 07/24/21 07:31 SP (Rec: 07/24/21 08:16 SP [id number]) Therapeutic Exercises Sitting Exercises self STMs Sitting Exercise Name Tibialis Anterior & peroneals Side right Equipment Used rolling pin, racquetball Reps/Minutes 1 min total Comments fair response but found gave good massage less tightness 4 way ankle Sitting Exercise Name PF, DF, IV, EV-added to HEP Side right Resistance TB #1 Reps/Minutes x10 each if tolerated Comments cued slow eccentric return, pain increased w/ IV TB so hold this direction arch lift Sitting Exercise Name reviewed HEP Side right Reps/Minutes 5 sec hold x10 Comments ok response, not worse pain. BAPS Sitting Exercise Name DF/PF, IV/ EV. added CW/ CCW- reviewed HEP Side right Resistance Lvl 3 (next tx L4) Equipment Used BAPS Reps/Minutes x10 reps each direction Comments cued slow pacing quality movement, not pain limited EV Standing Exercises arch lift and Eversion Standing Exercise Name added to HEP Side right Reps/Minutes x5 Comments cued slow lifts, initial painful then less post cue slow gentle small lift Manual Therapy Treatment Soft Tissue Mobilization tibialis ant, peroneals Body Location R Mobilization Type Strumming,Sustained Pressure Intensity/Depth Moderate Body Position Sitting Comments long sitting, manual and MWM ankle IV/ EV/ PF/ DF Joint Mobilizations ankle mobs Joint R talocrual PA, calcaneus Med/ Lat, 1-5 MTPs PA Grade II Body Position Sitting Comments fair feedback response feels ok, improved ankle EV ROM during BAPS and eversion standing post manual Taping K taping R ankle Body Location R lateral ankle (follow peroneals) Treatment Focus support EV Type of Tape Kinesio Tape Skin Inspection normal color/texture Comments stablized lateral ankle, assist peroneal musculature, good feedback response, understands can remove in 1- 4 days if response well- understands adverse affects: reddness, itching response and remove if experiences. PT-OP-R Modalities Start: 07/10/21 12:28 Freq: Status: Active Protocol: Document 07/24/21 07:31 SP (Rec: 07/24/21 08:16 SP [id number]) Hot Pack/Cold Pack Treatment CP Location R ankle Patient Position Supine Treatment Duration (minutes) 8 Patient Tolerance Good Comments end tx for pain control, less pain than when arrived. PT-OP-T Assessment and Plan Start: 07/10/21 12:28 Freq: Status: Active Protocol: Document 07/24/21 07:31 SP (Rec: 07/24/21 08:16 SP [id number]) Physical Therapy Assessment Goals balance Blood Bank Business Manager Goal (LTG) Bruno will balance on his right foot for 15 seconds or greater. LTG Duration 8 weeks transfers Short Term Goal (STG) Bruno will perform a floor transfer with 2/10 ankle pain or less. STG Duration 4 weeks Blood Bank Business Manager Goal (LTG) Bruno will sit cross legged on the floor for 10 minutes without ankle pain so that he can play with his children. LTG Duration 8 weeks Two Impairment pain Short Term Goal (STG) Bruno will ambulate over gravel/grass/curbs for 10 minutes without an increase in his baseline pain. STG Duration 4 weeks Group Home Goal (LTG) Bruno will don/doff his socks and shoes without an increase in pain. LTG Duration 8 weeks One Impairment ROM Short Term Goal (STG) Bruno will improve his pain free ankle eversion to at least 15 degrees. STG Duration 4 weeks Assessment Summary Assessment Pt pain worse w/ PF sub lateral malleolus and achilles . Physical Therapy Plan Frequency and Duration Frequency of Treatment 2x/Week Duration of Treatment 8 weeks Plan of Care Start Date 07/17/21 Plan of Care End Date 09/11/21 Therapeutic Interventions Therapeutic Interventions Balance Training,Gait Training ,Home Exercise Program,Joint Mobilizations,Manual Therapy, Neuromuscular Re-education, Self-Care/Home Management,Soft Tissue Mobilization, Therapeutic Activities, Therapeutic Exercises Modalities Cold Pack/Ice Massage,Electric Stimulation,Hot Packs Next Visit Focus/Plan Next Note Type Treatment Note Next Visit Plan Review goals progression and HEP TB +, including response to added arch lift standing and self STMs last tx. POC: Continue to encourage edema management, progress balance eg. star glides.
--- NOTE | 2021-07-31 13:23 | PT.OTN ---
Current Diagnoses Sprain of unspecified ligament of right ankle, initial encounter (07/31/21) Physical Therapy Treatment Note PT-OP-A Visit Information Start: 07/10/21 12:28 Freq: Status: Active Protocol: Document 07/31/21 07:30 AMB (Rec: 07/31/21 13:23 AMB [id number]) Out-Patient Physical Therapy Visit Information Visit Information Visit Type Treatment Note Visit Start Time 07:30 Visit Stop Time 08:15 Total Visit Minutes 45 Visit Number 4 Number of DATA TYPIST Visits 0 PT-OP-B Current Condition Start: 07/10/21 12:28 Freq: Status: Active Protocol: Document 07/17/21 07:32 AMB (Rec: 07/17/21 08:21 AMB [id number]) Current Condition History of Current Condition Onset Date 1.5 months ago Current Complaints R ankle pain s/p sprain History of Current Condition Sitting cross legged, driving pushing the gas pedal, working out all increase Bruno' pain. He had significant swelling after twisting his ankle while stepping off of a curb, and has not been able to return to his prior level of function of walking the dog due to continued pain. He does have history of prior ankle sprains , especially on the left side. Treatment Goals Patient/Caregiver Goals Be able to walk/sit down on the floor/stand up/workout without ankle pain. Prior Functional Status Baseline Function- ADL's Independent Baseline Function- Mobility Independent Current Functional Impairments (Reported) Functional Limitations- ADL's Pain with ambulation and advanced transfers, having to modify workout due to ankle pain Personal Factors Other Personal Factors That May Effect BMI 40-45 Therapy/Recovery PT-OP-C Subjective Start: 07/10/21 12:28 Freq: Status: Active Protocol: Document 07/31/21 07:30 AMB (Rec: 07/31/21 13:23 AMB [id number]) OP-PT Subjective Patient Comments Patient Comments Bruno report he walked around [facility] and ankle was painful afterward but did not ice. Hard to find time to do HEP/ice. PT-OP-D Balance Start: 07/10/21 12:28 Freq: Status: Active Protocol: Document 07/17/21 07:30 AMB (Rec: 07/17/21 12:01 AMB [id number]) OP-PT Balance Assessment Standing Balance Standing Balance Comments single leg stance limited to 2 sec on R, 5-7 sec on L. pain limits Greer Fall Scale Copyright Permission PT-OP-F Manual Assessment Start: 07/10/21 12:28 Freq: Status: Active Protocol: Document 07/17/21 07:30 AMB (Rec: 07/17/21 13:01 AMB [id number]) Manual Assessments Soft Tissue Assessment Soft Tissue Mobility Assessment Tenderness over ATFL and into fibularis muscles. Swelling thorought ankle, pt does report some tenderness over achilles with heel raise. PT-OP-G Mobility & Gait Start: 07/10/21 12:28 Freq: Status: Active Protocol: Document 07/17/21 07:30 AMB (Rec: 07/17/21 12:01 AMB [id number]) OP Gait Assessment Comments Gait Comments Decreased push off on the right during terminal stance. PT-OP-J Posture/Palpation/Skin Start: 07/10/21 12:28 Freq: Status: Active Protocol: Document 07/17/21 07:30 AMB (Rec: 07/17/21 12:01 AMB [id number]) Skin Assessment Circumference Measurement 2 Location R ankle Measurement (Centimeters) 30 1 Location L ankle Measurement (Centimeters) 29 PT-OP-K Range of Motion Start: 07/10/21 12:28 Freq: Status: Active Protocol: Document 07/17/21 07:30 AMB (Rec: 07/17/21 12:01 AMB [id number]) Ankle and Foot Goniometric Range of Motion Ankle and Foot Right Passive Testing Position Sitting Dorsiflexion with Knee Flexed 5 Plantarflexion 50 Inversion 30 Eversion 5 Left Passive Testing Position Sitting Dorsiflexion with Knee Flexed 8 Plantarflexion 50 Inversion 30 Eversion 20 PT-OP-M Strength Start: 07/10/21 12:28 Freq: Status: Active Protocol: Document 07/17/21 07:30 AMB (Rec: 07/17/21 13:01 AMB [id number]) Ankle/Foot Strength Ankle and Foot Manual Muscle Testing Right Dorsiflexion (L4) 4 Good Plantarflexion (S1) 4 Good Inversion 4 Good Eversion (S1) 4- Good- Left Dorsiflexion (L4) 5 Normal Plantarflexion (S1) 4+ Good+ Inversion 5 Normal Eversion (S1) 5 Normal PT-OP-Q Treatments Start: 07/10/21 12:28 Freq: Status: Active Protocol: Document 07/31/21 07:30 AMB (Rec: 07/31/21 13:22 AMB [id number]) Therapeutic Exercises Sitting Exercises 4 way ankle Sitting Exercise Name PF, DF, IV, EV-added to HEP Side right Resistance TB #1 Reps/Minutes x10 each if tolerated Comments cued slow eccentric return, pain increased w/ IV TB so hold this direction arch lift Sitting Exercise Name reviewed HEP Side right Reps/Minutes 5 sec hold x10 Comments ok response, not worse pain. Standing Exercises arch lift and Eversion Standing Exercise Name added to HEP Side right Reps/Minutes x5 Comments reviewed slow, not to end range Manual Therapy Treatment Soft Tissue Mobilization tibialis ant, peroneals Body Location R Mobilization Type Strumming,Sustained Pressure Intensity/Depth Moderate Body Position Sitting Comments long sitting, manual and MWM ankle IV/ EV/ PF/ DF Joint Mobilizations ankle mobs Joint R talocrual PA, calcaneus Med/ Lat, 1-5 MTPs PA Grade II Body Position Sitting Neuro Re-Education Treatment Balance Activities foam balance Comments NBOS- encouraged that small ankle movements are good for strengthening PT-OP-R Modalities Start: 07/10/21 12:28 Freq: Status: Active Protocol: Document 07/31/21 07:30 AMB (Rec: 07/31/21 13:22 AMB [id number]) Hot Pack/Cold Pack Treatment CP Location R ankle Patient Position Supine Treatment Duration (minutes) 8 Patient Tolerance Good Comments end tx for pain control, less pain than when arrived. PT-OP-T Assessment and Plan Start: 07/10/21 12:28 Freq: Status: Active Protocol: Document 07/31/21 07:30 AMB (Rec: 07/31/21 13:22 AMB [id number]) Physical Therapy Assessment Goals balance Practical Nursing Teacher Goal (LTG) Bruno will balance on his right foot for 15 seconds or greater. LTG Duration 8 weeks transfers Short Term Goal (STG) Bruno will perform a floor transfer with 2/10 ankle pain or less. STG Duration 4 weeks Long-Term Goal (LTG) Bruno will sit cross legged on the floor for 10 minutes without ankle pain so that he can play with his children. LTG Duration 8 weeks Two Impairment pain Short Term Goal (STG) Bruno will ambulate over gravel/grass/curbs for 10 minutes without an increase in his baseline pain. STG Duration 4 weeks Long-Term Goal (LTG) Bruno will don/doff his socks and shoes without an increase in pain. LTG Duration 8 weeks One Impairment ROM Short Term Goal (STG) Bruno will improve his pain free ankle eversion to at least 15 degrees. STG Duration 4 weeks Assessment Summary Assessment Did not progress Bruno' HEP today as he has had difficulty finding time to be consistent with current program, did offer variations of ankle t band strengthening, encouarged icing and gentle balance exercises. Physical Therapy Plan Next Visit Focus/Plan Next Note Type Treatment Note Next Visit Plan Review goals progression and HEP TB +, including response to added arch lift standing and self STMs last tx. POC: Continue to encourage edema management, progress balance eg. star glides.
--- NOTE | 2021-08-02 09:46 | PT.OTN ---
Current Diagnoses Sprain of unspecified ligament of right ankle, initial encounter (08/02/21) Physical Therapy Treatment Note PT-OP-A Visit Information Start: 07/10/21 12:28 Freq: Status: Active Protocol: Document 08/02/21 07:30 AMB (Rec: 08/02/21 08:18 AMB [id number]) Out-Patient Physical Therapy Visit Information Visit Information Visit Type Treatment Note Visit Start Time 07:30 Visit Stop Time 08:15 Total Visit Minutes 45 Visit Number 5 Number of EARLY INTERVENTIONIST Visits 0 PT-OP-B Current Condition Start: 07/10/21 12:28 Freq: Status: Active Protocol: Document 07/17/21 07:32 AMB (Rec: 07/17/21 08:21 AMB [id number]) Current Condition History of Current Condition Onset Date 1.5 months ago Current Complaints R ankle pain s/p sprain History of Current Condition Sitting cross legged, driving pushing the gas pedal, working out all increase Bruno' pain. He had significant swelling after twisting his ankle while stepping off of a curb, and has not been able to return to his prior level of function of walking the dog due to continued pain. He does have history of prior ankle sprains , especially on the left side. Treatment Goals Patient/Caregiver Goals Be able to walk/sit down on the floor/stand up/workout without ankle pain. 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 Pt reports mowing the lawn and walking around [place] a lot so it was sore, did not ice or do HEP. PT-OP-D Balance Start: 07/10/21 12:28 Freq: Status: Active Protocol: Document 07/17/21 07:30 AMB (Rec: 07/17/21 12:01 AMB [id number]) OP-PT Balance Assessment Standing Balance Standing Balance Comments single leg stance limited to 2 sec on R, 5-7 sec on L. pain limits Greer Fall Scale Copyright Permission PT-OP-F Manual Assessment Start: 07/10/21 12:28 Freq: Status: Active Protocol: Document 07/17/21 07:30 AMB (Rec: 07/17/21 13:01 AMB [id number]) Manual Assessments Soft Tissue Assessment Soft Tissue Mobility Assessment Tenderness over ATFL and into fibularis muscles. Swelling thorought ankle, pt does report some tenderness over achilles with heel raise. PT-OP-G Mobility & Gait Start: 07/10/21 12:28 Freq: Status: Active Protocol: Document 07/17/21 07:30 AMB (Rec: 07/17/21 12:01 AMB [id number]) OP Gait Assessment Comments Gait Comments Decreased push off on the right during terminal stance. PT-OP-J Posture/Palpation/Skin Start: 07/10/21 12:28 Freq: Status: Active Protocol: Document 07/17/21 07:30 AMB (Rec: 07/17/21 12:01 AMB [id number]) Skin Assessment Circumference Measurement 2 Location R ankle Measurement (Centimeters) 30 1 Location L ankle Measurement (Centimeters) 29 PT-OP-K Range of Motion Start: 07/10/21 12:28 Freq: Status: Active Protocol: Document 07/17/21 07:30 AMB (Rec: 07/17/21 12:01 AMB [id number]) Ankle and Foot Goniometric Range of Motion Ankle and Foot Right Passive Testing Position Sitting Dorsiflexion with Knee Flexed 5 Plantarflexion 50 Inversion 30 Eversion 5 Left Passive Testing Position Sitting Dorsiflexion with Knee Flexed 8 Plantarflexion 50 Inversion 30 Eversion 20 PT-OP-M Strength Start: 07/10/21 12:28 Freq: Status: Active Protocol: Document 07/17/21 07:30 AMB (Rec: 07/17/21 13:01 AMB [id number]) Ankle/Foot Strength Ankle and Foot Manual Muscle Testing Right Dorsiflexion (L4) 4 Good Plantarflexion (S1) 4 Good Inversion 4 Good Eversion (S1) 4- Good- Left Dorsiflexion (L4) 5 Normal Plantarflexion (S1) 4+ Good+ Inversion 5 Normal Eversion (S1) 5 Normal PT-OP-Q Treatments Start: 07/10/21 12:28 Freq: Status: Active Protocol: Document 08/02/21 07:30 AMB (Rec: 08/02/21 09:45 AMB [id number]) Gym Equipment Shuttle Recovery Unilateral Squats Resistance 25 Shuttle Recovery Platform Unstable Reps/Time 2x10 Unilateral Heel Raises Resistance 25 Shuttle Recovery Platform Stable Reps/Time 2x10 Therapeutic Exercises Standing Exercises mini lunge Standing Exercise Name challenging Reps/Minutes 10 Manual Therapy Treatment Soft Tissue Mobilization tibialis ant, peroneals Body Location R Mobilization Type Strumming,Sustained Pressure Intensity/Depth Moderate Body Position Sitting Comments long sitting, manual and MWM ankle IV/ EV/ PF/ DF Joint Mobilizations ankle mobs Joint R talocrual PA, calcaneus Med/ Lat, 1-5 MTPs PA Grade II Body Position Sitting Neuro Re-Education Treatment Balance Activities single leg stance Reps/Duration 10x3 Comments challenging- finger tip support on counter foam balance Comments NBOS- encouraged that small ankle movements are good for strengthening PT-OP-R Modalities Start: 07/10/21 12:28 Freq: Status: Active Protocol: Document 08/02/21 07:30 AMB (Rec: 08/02/21 09:45 AMB [id number]) Hot Pack/Cold Pack Treatment CP Location R ankle Patient Position Supine Treatment Duration (minutes) 8 Patient Tolerance Good Comments end tx for pain control, less pain than when arrived. PT-OP-T Assessment and Plan Start: 07/10/21 12:28 Freq: Status: Active Protocol: Document 08/02/21 07:30 AMB (Rec: 08/02/21 08:18 AMB [id number]) Physical Therapy Assessment Goals balance Crating And Moving Estimator Goal (LTG) Bruno will balance on his right foot for 15 seconds or greater. LTG Duration 8 weeks transfers Short Term Goal (STG) Bruno will perform a floor transfer with 2/10 ankle pain or less. STG Duration 4 weeks Custodial Goal (LTG) Bruno will sit cross legged on the floor for 10 minutes without ankle pain so that he can play with his children. LTG Duration 8 weeks Two Impairment pain Short Term Goal (STG) Bruno will ambulate over gravel/grass/curbs for 10 minutes without an increase in his baseline pain. STG Duration 4 weeks Custodial Goal (LTG) Bruno will don/doff his socks and shoes without an increase in pain. LTG Duration 8 weeks One Impairment ROM Short Term Goal (STG) Bruno will improve his pain free ankle eversion to at least 15 degrees. STG Duration 4 weeks Assessment Summary Assessment Bruno tolerated an increase in ankle challenge, but did have mild pain laterally. No significant increase in edema. Encouraged in continued icing thao after more aggressive activities like mowing the lawn. Physical Therapy Plan Next Visit Focus/Plan Next Note Type Treatment Note Next Visit Plan POC: Continue to encourage edema management, progress balance
--- NOTE | 2021-08-07 08:29 | PT.OTN ---
Current Diagnoses Sprain of unspecified ligament of right ankle, initial encounter (08/07/21) Physical Therapy Treatment Note PT-OP-A Visit Information Start: 07/10/21 12:28 Freq: Status: Active Protocol: Document 08/07/21 07:29 AMB (Rec: 08/07/21 08:18 AMB [id number]) Out-Patient Physical Therapy Visit Information Visit Information Visit Type Treatment Note Visit Start Time 07:30 Visit Stop Time 08:15 Total Visit Minutes 45 Visit Number 5 Number of COLOR WEIGHER Visits 0 PT-OP-B Current Condition Start: 07/10/21 12:28 Freq: Status: Active Protocol: Document 07/17/21 07:32 AMB (Rec: 07/17/21 08:21 AMB [id number]) Current Condition History of Current Condition Onset Date 1.5 months ago Current Complaints R ankle pain s/p sprain History of Current Condition Sitting cross legged, driving pushing the gas pedal, working out all increase Bruno' pain. He had significant swelling after twisting his ankle while stepping off of a curb, and has not been able to return to his prior level of function of walking the dog due to continued pain. He does have history of prior ankle sprains , especially on the left side. Treatment Goals Patient/Caregiver Goals Be able to walk/sit down on the floor/stand up/workout without ankle pain. Prior Functional Status Baseline Function- ADL's Independent Baseline Function- Mobility Independent Current Functional Impairments (Reported) Functional Limitations- ADL's Pain with ambulation and advanced transfers, having to modify workout due to ankle pain Personal Factors Other Personal Factors That May Effect BMI 40-45 Therapy/Recovery PT-OP-C Subjective Start: 07/10/21 12:28 Freq: Status: Active Protocol: Document 08/07/21 07:29 AMB (Rec: 08/07/21 08:18 AMB [id number]) OP-PT Subjective Patient Comments Patient Comments Pt getting MRI on August 16. Did yardwork over the weekend and felt it in the back and the front of his ankle. PT-OP-D Balance Start: 07/10/21 12:28 Freq: Status: Active Protocol: Document 07/17/21 07:30 AMB (Rec: 07/17/21 12:01 AMB [id number]) OP-PT Balance Assessment Standing Balance Standing Balance Comments single leg stance limited to 2 sec on R, 5-7 sec on L. pain limits Greer Fall Scale Copyright Permission PT-OP-F Manual Assessment Start: 07/10/21 12:28 Freq: Status: Active Protocol: Document 07/17/21 07:30 AMB (Rec: 07/17/21 13:01 AMB [id number]) Manual Assessments Soft Tissue Assessment Soft Tissue Mobility Assessment Tenderness over ATFL and into fibularis muscles. Swelling thorought ankle, pt does report some tenderness over achilles with heel raise. PT-OP-G Mobility & Gait Start: 07/10/21 12:28 Freq: Status: Active Protocol: Document 07/17/21 07:30 AMB (Rec: 07/17/21 12:01 AMB [id number]) OP Gait Assessment Comments Gait Comments Decreased push off on the right during terminal stance. PT-OP-J Posture/Palpation/Skin Start: 07/10/21 12:28 Freq: Status: Active Protocol: Document 07/17/21 07:30 AMB (Rec: 07/17/21 12:01 AMB [id number]) Skin Assessment Circumference Measurement 2 Location R ankle Measurement (Centimeters) 30 1 Location L ankle Measurement (Centimeters) 29 PT-OP-K Range of Motion Start: 07/10/21 12:28 Freq: Status: Active Protocol: Document 07/17/21 07:30 AMB (Rec: 07/17/21 12:01 AMB [id number]) Ankle and Foot Goniometric Range of Motion Ankle and Foot Right Passive Testing Position Sitting Dorsiflexion with Knee Flexed 5 Plantarflexion 50 Inversion 30 Eversion 5 Left Passive Testing Position Sitting Dorsiflexion with Knee Flexed 8 Plantarflexion 50 Inversion 30 Eversion 20 PT-OP-M Strength Start: 07/10/21 12:28 Freq: Status: Active Protocol: Document 07/17/21 07:30 AMB (Rec: 07/17/21 13:01 AMB [id number]) Ankle/Foot Strength Ankle and Foot Manual Muscle Testing Right Dorsiflexion (L4) 4 Good Plantarflexion (S1) 4 Good Inversion 4 Good Eversion (S1) 4- Good- Left Dorsiflexion (L4) 5 Normal Plantarflexion (S1) 4+ Good+ Inversion 5 Normal Eversion (S1) 5 Normal PT-OP-Q Treatments Start: 07/10/21 12:28 Freq: Status: Active Protocol: Document 08/07/21 07:30 AMB (Rec: 08/07/21 08:29 AMB [id number]) Gym Equipment Shuttle Recovery Unilateral Squats Resistance 50 Shuttle Recovery Platform Unstable Reps/Time 2x10 Unilateral Heel Raises Resistance 25 Shuttle Recovery Platform Stable Reps/Time 2x10 Therapeutic Exercises Sitting Exercises self STMs Sitting Exercise Name Tibialis Anterior & peroneals Side right Equipment Used rolling pin, racquetball Reps/Minutes 1 min total Comments fair response but found gave good massage less tightness Manual Therapy Treatment Soft Tissue Mobilization tibialis ant, peroneals Body Location R Mobilization Type Strumming,Sustained Pressure Intensity/Depth Moderate Body Position Sitting Comments long sitting, manual and MWM ankle IV/ EV/ PF/ DF. Added work on achilles today Joint Mobilizations ankle mobs Joint R talocrual PA, calcaneus Med/ Lat, 1-5 MTPs PA Grade II Body Position Supine Neuro Re-Education Treatment Balance Activities single leg stance Reps/Duration 10x3 Comments challenging- finger tip support on counter foam balance Comments NBOS- encouraged that small ankle movements are good for strengthening PT-OP-R Modalities Start: 07/10/21 12:28 Freq: Status: Active Protocol: Document 08/02/21 07:30 AMB (Rec: 08/02/21 09:45 AMB [id number]) Hot Pack/Cold Pack Treatment CP Location R ankle Patient Position Supine Treatment Duration (minutes) 8 Patient Tolerance Good Comments end tx for pain control, less pain than when arrived. PT-OP-T Assessment and Plan Start: 07/10/21 12:28 Freq: Status: Active Protocol: Document 08/07/21 07:29 AMB (Rec: 08/07/21 08:18 AMB [id number]) Physical Therapy Assessment Goals balance Invertebrate Paleontologist Goal (LTG) Bruno will balance on his right foot for 15 seconds or greater. LTG Duration 8 weeks transfers Short Term Goal (STG) Bruno will perform a floor transfer with 2/10 ankle pain or less. STG Duration 4 weeks Invertebrate Paleontologist Goal (LTG) Bruno will sit cross legged on the floor for 10 minutes without ankle pain so that he can play with his children. LTG Duration 8 weeks Two Impairment pain Short Term Goal (STG) Bruno will ambulate over gravel/grass/curbs for 10 minutes without an increase in his baseline pain. STG Duration 4 weeks Invertebrate Paleontologist Goal (LTG) Bruno will don/doff his socks and shoes without an increase in pain. LTG Duration 8 weeks One Impairment ROM Short Term Goal (STG) Bruno will improve his pain free ankle eversion to at least 15 degrees. STG Duration 4 weeks Assessment Summary Assessment Pt not having as much lateral ankle pain, the front and the back of the ankle hae been more painful. Physical Therapy Plan Next Visit Focus/Plan Next Note Type Treatment Note Next Visit Plan POC: Continue to encourage edema management, progress balance
--- NOTE | 2021-08-09 08:38 | PT.OTN ---
Current Diagnoses Sprain of unspecified ligament of right ankle, initial encounter (08/09/21) Physical Therapy Treatment Note PT-OP-A Visit Information Start: 07/10/21 12:28 Freq: Status: Active Protocol: Document 08/09/21 07:35 AMB (Rec: 08/09/21 08:38 AMB [id number]) Out-Patient Physical Therapy Visit Information Visit Information Visit Type Treatment Note Visit Start Time 07:30 Visit Stop Time 08:15 Total Visit Minutes 45 Visit Number 7 PT-OP-B Current Condition Start: 07/10/21 12:28 Freq: Status: Active Protocol: Document 07/17/21 07:32 AMB (Rec: 07/17/21 08:21 AMB [id number]) Current Condition History of Current Condition Onset Date 1.5 months ago Current Complaints R ankle pain s/p sprain History of Current Condition Sitting cross legged, driving pushing the gas pedal, working out all increase Bruno' pain. He had significant swelling after twisting his ankle while stepping off of a curb, and has not been able to return to his prior level of function of walking the dog due to continued pain. He does have history of prior ankle sprains , especially on the left side. Treatment Goals Patient/Caregiver Goals Be able to walk/sit down on the floor/stand up/workout without ankle pain. Prior Functional Status Baseline Function- ADL's Independent Baseline Function- Mobility Independent Current Functional Impairments (Reported) Functional Limitations- ADL's Pain with ambulation and advanced transfers, having to modify workout due to ankle pain Personal Factors Other Personal Factors That May Effect BMI 40-45 Therapy/Recovery PT-OP-C Subjective Start: 07/10/21 12:28 Freq: Status: Active Protocol: Document 08/09/21 07:35 AMB (Rec: 08/09/21 08:38 AMB [id number]) OP-PT Subjective Patient Comments Patient Comments Bruno almanza went to the gym and worked on some balance things and it went ok. PT-OP-D Balance Start: 07/10/21 12:28 Freq: Status: Active Protocol: Document 07/17/21 07:30 AMB (Rec: 07/17/21 12:01 AMB [id number]) OP-PT Balance Assessment Standing Balance Standing Balance Comments single leg stance limited to 2 sec on R, 5-7 sec on L. pain limits Greer Fall Scale Copyright Permission PT-OP-F Manual Assessment Start: 07/10/21 12:28 Freq: Status: Active Protocol: Document 07/17/21 07:30 AMB (Rec: 07/17/21 13:01 AMB [id number]) Manual Assessments Soft Tissue Assessment Soft Tissue Mobility Assessment Tenderness over ATFL and into fibularis muscles. Swelling thorought ankle, pt does report some tenderness over achilles with heel raise. PT-OP-G Mobility & Gait Start: 07/10/21 12:28 Freq: Status: Active Protocol: Document 07/17/21 07:30 AMB (Rec: 07/17/21 12:01 AMB [id number]) OP Gait Assessment Comments Gait Comments Decreased push off on the right during terminal stance. PT-OP-J Posture/Palpation/Skin Start: 07/10/21 12:28 Freq: Status: Active Protocol: Document 07/17/21 07:30 AMB (Rec: 07/17/21 12:01 AMB [id number]) Skin Assessment Circumference Measurement 2 Location R ankle Measurement (Centimeters) 30 1 Location L ankle Measurement (Centimeters) 29 PT-OP-K Range of Motion Start: 07/10/21 12:28 Freq: Status: Active Protocol: Document 07/17/21 07:30 AMB (Rec: 07/17/21 12:01 AMB [id number]) Ankle and Foot Goniometric Range of Motion Ankle and Foot Right Passive Testing Position Sitting Dorsiflexion with Knee Flexed 5 Plantarflexion 50 Inversion 30 Eversion 5 Left Passive Testing Position Sitting Dorsiflexion with Knee Flexed 8 Plantarflexion 50 Inversion 30 Eversion 20 PT-OP-M Strength Start: 07/10/21 12:28 Freq: Status: Active Protocol: Document 07/17/21 07:30 AMB (Rec: 07/17/21 13:01 AMB [id number]) Ankle/Foot Strength Ankle and Foot Manual Muscle Testing Right Dorsiflexion (L4) 4 Good Plantarflexion (S1) 4 Good Inversion 4 Good Eversion (S1) 4- Good- Left Dorsiflexion (L4) 5 Normal Plantarflexion (S1) 4+ Good+ Inversion 5 Normal Eversion (S1) 5 Normal PT-OP-Q Treatments Start: 07/10/21 12:28 Freq: Status: Active Protocol: Document 08/09/21 07:35 AMB (Rec: 08/09/21 08:38 AMB [id number]) Gym Equipment Shuttle Recovery Unilateral Squats Resistance 50 Shuttle Recovery Platform Unstable Reps/Time 2x10 Unilateral Heel Raises Resistance 50 Shuttle Recovery Platform Stable Reps/Time 2x10 Therapeutic Exercises Standing Exercises achilles stretch Standing Exercise Name Travon Reps/Minutes 30x2 Manual Therapy Treatment Soft Tissue Mobilization tibialis ant, peroneals Body Location R Mobilization Type Strumming,Sustained Pressure Intensity/Depth Moderate Body Position Sitting Comments long sitting, manual and MWM ankle IV/ EV/ PF/ DF. Added work on achilles today Joint Mobilizations ankle mobs Joint R talocrual PA, calcaneus Med/ Lat, 1-5 MTPs PA Grade IV Body Position Supine Neuro Re-Education Treatment Balance Activities rocker board Details AP only Reps/Duration 3 min single leg stance Reps/Duration 10x3 Comments challenging- finger tip support on counter foam balance Details eyes closed Comments NBOS- encouraged that small ankle movements are good for strengthening PT-OP-R Modalities Start: 07/10/21 12:28 Freq: Status: Active Protocol: Document 08/02/21 07:30 AMB (Rec: 08/02/21 09:45 AMB [id number]) Hot Pack/Cold Pack Treatment CP Location R ankle Patient Position Supine Treatment Duration (minutes) 8 Patient Tolerance Good Comments end tx for pain control, less pain than when arrived. PT-OP-T Assessment and Plan Start: 07/10/21 12:28 Freq: Status: Active Protocol: Document 08/09/21 07:35 AMB (Rec: 08/09/21 08:38 AMB [id number]) Physical Therapy Assessment Goals balance Coat Repair Inspector Goal (LTG) Bruno will balance on his right foot for 15 seconds or greater. LTG Duration 8 weeks transfers Short Term Goal (STG) Bruno will perform a floor transfer with 2/10 ankle pain or less. STG Duration 4 weeks Prison Goal (LTG) Bruno will sit cross legged on the floor for 10 minutes without ankle pain so that he can play with his children. LTG Duration 8 weeks Two Impairment pain Short Term Goal (STG) Bruno will ambulate over gravel/grass/curbs for 10 minutes without an increase in his baseline pain. STG Duration 4 weeks Prison Goal (LTG) Bruno will don/doff his socks and shoes without an increase in pain. LTG Duration 8 weeks One Impairment ROM Short Term Goal (STG) Bruno will improve his pain free ankle eversion to at least 15 degrees. STG Duration 4 weeks Assessment Summary Assessment Pt having the most discomfort with the anterior ankle. Encouraged to consider ankle bracing when mowing the lawn, doing a lot of uneven terrain. Pt states he has lots of ankle braces. Physical Therapy Plan Next Visit Focus/Plan Next Note Type Treatment Note Next Visit Plan POC: Continue to encourage edema management, progress balance
--- NOTE | 2021-08-20 13:11 | PT.OTN ---
Current Diagnoses Sprain of unspecified ligament of right ankle, initial encounter (08/20/21) Physical Therapy Treatment Note PT-OP-A Visit Information Start: 07/10/21 12:28 Freq: Status: Active Protocol: Document 08/20/21 07:33 AMB (Rec: 08/20/21 08:19 AMB [id number]) Out-Patient Physical Therapy Visit Information Visit Information Visit Type Treatment Note Visit Start Time 07:30 Visit Stop Time 08:15 Total Visit Minutes 45 Visit Number 8 PT-OP-B Current Condition Start: 07/10/21 12:28 Freq: Status: Active Protocol: Document 07/17/21 07:32 AMB (Rec: 07/17/21 08:21 AMB [id number]) Current Condition History of Current Condition Onset Date 1.5 months ago Current Complaints R ankle pain s/p sprain History of Current Condition Sitting cross legged, driving pushing the gas pedal, working out all increase Bruno' pain. He had significant swelling after twisting his ankle while stepping off of a curb, and has not been able to return to his prior level of function of walking the dog due to continued pain. He does have history of prior ankle sprains , especially on the left side. Treatment Goals Patient/Caregiver Goals Be able to walk/sit down on the floor/stand up/workout without ankle pain. Prior Functional Status Baseline Function- ADL's Independent Baseline Function- Mobility Independent Current Functional Impairments (Reported) Functional Limitations- ADL's Pain with ambulation and advanced transfers, having to modify workout due to ankle pain Personal Factors Other Personal Factors That May Effect BMI 40-45 Therapy/Recovery PT-OP-C Subjective Start: 07/10/21 12:28 Freq: Status: Active Protocol: Document 08/20/21 07:33 AMB (Rec: 08/20/21 08:19 AMB [id number]) OP-PT Subjective Patient Comments Patient Comments Continued pain with community ambulation, mostly lateral, some anterior pain. Hasn't got results of MRI yet. PT-OP-D Balance Start: 07/10/21 12:28 Freq: Status: Active Protocol: Document 07/17/21 07:30 AMB (Rec: 07/17/21 12:01 AMB [id number]) OP-PT Balance Assessment Standing Balance Standing Balance Comments single leg stance limited to 2 sec on R, 5-7 sec on L. pain limits Greer Fall Scale Copyright Permission PT-OP-F Manual Assessment Start: 07/10/21 12:28 Freq: Status: Active Protocol: Document 07/17/21 07:30 AMB (Rec: 07/17/21 13:01 AMB [id number]) Manual Assessments Soft Tissue Assessment Soft Tissue Mobility Assessment Tenderness over ATFL and into fibularis muscles. Swelling thorought ankle, pt does report some tenderness over achilles with heel raise. PT-OP-G Mobility & Gait Start: 07/10/21 12:28 Freq: Status: Active Protocol: Document 07/17/21 07:30 AMB (Rec: 07/17/21 12:01 AMB [id number]) OP Gait Assessment Comments Gait Comments Decreased push off on the right during terminal stance. PT-OP-J Posture/Palpation/Skin Start: 07/10/21 12:28 Freq: Status: Active Protocol: Document 07/17/21 07:30 AMB (Rec: 07/17/21 12:01 AMB [id number]) Skin Assessment Circumference Measurement 2 Location R ankle Measurement (Centimeters) 30 1 Location L ankle Measurement (Centimeters) 29 PT-OP-K Range of Motion Start: 07/10/21 12:28 Freq: Status: Active Protocol: Document 07/17/21 07:30 AMB (Rec: 07/17/21 12:01 AMB [id number]) Ankle and Foot Goniometric Range of Motion Ankle and Foot Right Passive Testing Position Sitting Dorsiflexion with Knee Flexed 5 Plantarflexion 50 Inversion 30 Eversion 5 Left Passive Testing Position Sitting Dorsiflexion with Knee Flexed 8 Plantarflexion 50 Inversion 30 Eversion 20 PT-OP-M Strength Start: 07/10/21 12:28 Freq: Status: Active Protocol: Document 07/17/21 07:30 AMB (Rec: 07/17/21 13:01 AMB [id number]) Ankle/Foot Strength Ankle and Foot Manual Muscle Testing Right Dorsiflexion (L4) 4 Good Plantarflexion (S1) 4 Good Inversion 4 Good Eversion (S1) 4- Good- Left Dorsiflexion (L4) 5 Normal Plantarflexion (S1) 4+ Good+ Inversion 5 Normal Eversion (S1) 5 Normal PT-OP-Q Treatments Start: 07/10/21 12:28 Freq: Status: Active Protocol: Document 08/20/21 07:30 AMB (Rec: 08/20/21 13:09 AMB [id number]) Gym Equipment Shuttle Recovery Unilateral Squats Resistance 50 Shuttle Recovery Platform Unstable Reps/Time 2x10 Unilateral Heel Raises Resistance 50 Shuttle Recovery Platform Stable Reps/Time 2x10 Therapeutic Exercises Standing Exercises achilles stretch Standing Exercise Name Travon Reps/Minutes 30x2 Manual Therapy Treatment Soft Tissue Mobilization tibialis ant, peroneals Body Location R Mobilization Type Strumming,Sustained Pressure Intensity/Depth Moderate Body Position Sitting Comments long sitting, manual and MWM ankle IV/ EV/ PF/ DF. Added work on achilles today Neuro Re-Education Treatment Balance Activities single leg stance Reps/Duration 10x3 Comments challenging- finger tip support on counter foam balance Details eyes closed Comments NBOS- encouraged that small ankle movements are good for strengthening PT-OP-R Modalities Start: 07/10/21 12:28 Freq: Status: Active Protocol: Document 08/02/21 07:30 AMB (Rec: 08/02/21 09:45 AMB [id number]) Hot Pack/Cold Pack Treatment CP Location R ankle Patient Position Supine Treatment Duration (minutes) 8 Patient Tolerance Good Comments end tx for pain control, less pain than when arrived. PT-OP-T Assessment and Plan Start: 07/10/21 12:28 Freq: Status: Active Protocol: Document 08/20/21 07:33 AMB (Rec: 08/20/21 08:19 AMB [id number]) Physical Therapy Assessment Goals balance Lead Setter Goal (LTG) Bruno will balance on his right foot for 15 seconds or greater. LTG Duration 8 weeks transfers Short Term Goal (STG) Bruno will perform a floor transfer with 2/10 ankle pain or less. STG Duration 4 weeks Usp Goal (LTG) Bruno will sit cross legged on the floor for 10 minutes without ankle pain so that he can play with his children. LTG Duration 8 weeks Two Impairment pain Short Term Goal (STG) Bruno will ambulate over gravel/grass/curbs for 10 minutes without an increase in his baseline pain. STG Duration 4 weeks Usp Goal (LTG) Bruno will don/doff his socks and shoes without an increase in pain. LTG Duration 8 weeks One Impairment ROM Short Term Goal (STG) Bruno will improve his pain free ankle eversion to at least 15 degrees. STG Duration 4 weeks Assessment Summary Assessment Bruno continues to have pain with single leg heel raises and difficulty with single leg balance. Walking longer distances is also painful. He did get an MRI, but does not have results yet. Physical Therapy Plan Next Visit Focus/Plan Next Note Type Treatment Note Next Visit Plan POC: Continue to encourage edema management, progress balance
--- NOTE | 2021-08-30 16:13 | PT.OTN ---
Current Diagnoses Sprain of unspecified ligament of right ankle, initial encounter (08/30/21) Physical Therapy Treatment Note PT-OP-A Visit Information Start: 07/10/21 12:28 Freq: Status: Active Protocol: Document 08/30/21 10:30 AMB (Rec: 08/30/21 16:13 AMB [id number]) Out-Patient Physical Therapy Visit Information Visit Information Visit Type Treatment Note Visit Start Time 10:30 Visit Stop Time 11:10 Total Visit Minutes 40 Visit Number 9 PT-OP-B Current Condition Start: 07/10/21 12:28 Freq: Status: Active Protocol: Document 07/17/21 07:32 AMB (Rec: 07/17/21 08:21 AMB [id number]) Current Condition History of Current Condition Onset Date 1.5 months ago Current Complaints R ankle pain s/p sprain History of Current Condition Sitting cross legged, driving pushing the gas pedal, working out all increase Bruno' pain. He had significant swelling after twisting his ankle while stepping off of a curb, and has not been able to return to his prior level of function of walking the dog due to continued pain. He does have history of prior ankle sprains , especially on the left side. Treatment Goals Patient/Caregiver Goals Be able to walk/sit down on the floor/stand up/workout without ankle pain. Prior Functional Status Baseline Function- ADL's Independent Baseline Function- Mobility Independent Current Functional Impairments (Reported) Functional Limitations- ADL's Pain with ambulation and advanced transfers, having to modify workout due to ankle pain Personal Factors Other Personal Factors That May Effect BMI 40-45 Therapy/Recovery PT-OP-C Subjective Start: 07/10/21 12:28 Freq: Status: Active Protocol: Document 08/30/21 10:30 AMB (Rec: 08/30/21 16:13 AMB [id number]) OP-PT Subjective Patient Comments Patient Comments Returns with MRI results and met with surgeon. Thinking about surgery in Dec. PT-OP-D Balance Start: 07/10/21 12:28 Freq: Status: Active Protocol: Document 07/17/21 07:30 AMB (Rec: 07/17/21 12:01 AMB [id number]) OP-PT Balance Assessment Standing Balance Standing Balance Comments single leg stance limited to 2 sec on R, 5-7 sec on L. pain limits Greer Fall Scale Copyright Permission PT-OP-F Manual Assessment Start: 07/10/21 12:28 Freq: Status: Active Protocol: Document 07/17/21 07:30 AMB (Rec: 07/17/21 13:01 AMB [id number]) Manual Assessments Soft Tissue Assessment Soft Tissue Mobility Assessment Tenderness over ATFL and into fibularis muscles. Swelling thorought ankle, pt does report some tenderness over achilles with heel raise. PT-OP-G Mobility & Gait Start: 07/10/21 12:28 Freq: Status: Active Protocol: Document 07/17/21 07:30 AMB (Rec: 07/17/21 12:01 AMB [id number]) OP Gait Assessment Comments Gait Comments Decreased push off on the right during terminal stance. PT-OP-J Posture/Palpation/Skin Start: 07/10/21 12:28 Freq: Status: Active Protocol: Document 07/17/21 07:30 AMB (Rec: 07/17/21 12:01 AMB [id number]) Skin Assessment Circumference Measurement 2 Location R ankle Measurement (Centimeters) 30 1 Location L ankle Measurement (Centimeters) 29 PT-OP-K Range of Motion Start: 07/10/21 12:28 Freq: Status: Active Protocol: Document 07/17/21 07:30 AMB (Rec: 07/17/21 12:01 AMB [id number]) Ankle and Foot Goniometric Range of Motion Ankle and Foot Right Passive Testing Position Sitting Dorsiflexion with Knee Flexed 5 Plantarflexion 50 Inversion 30 Eversion 5 Left Passive Testing Position Sitting Dorsiflexion with Knee Flexed 8 Plantarflexion 50 Inversion 30 Eversion 20 PT-OP-M Strength Start: 07/10/21 12:28 Freq: Status: Active Protocol: Document 07/17/21 07:30 AMB (Rec: 07/17/21 13:01 AMB [id number]) Ankle/Foot Strength Ankle and Foot Manual Muscle Testing Right Dorsiflexion (L4) 4 Good Plantarflexion (S1) 4 Good Inversion 4 Good Eversion (S1) 4- Good- Left Dorsiflexion (L4) 5 Normal Plantarflexion (S1) 4+ Good+ Inversion 5 Normal Eversion (S1) 5 Normal PT-OP-Q Treatments Start: 07/10/21 12:28 Freq: Status: Active Protocol: Document 08/30/21 10:30 AMB (Rec: 08/30/21 16:13 AMB [id number]) Gym Equipment Shuttle Recovery Unilateral Squats Resistance 50 Shuttle Recovery Platform Unstable Reps/Time 2x10 Unilateral Heel Raises Resistance 50 Shuttle Recovery Platform Stable Reps/Time 2x10 Neuro Re-Education Treatment Balance Activities tandem stance Reps/Duration 30x2 single leg stance Reps/Duration 10x3 Comments challenging- finger tip support on counter foam balance Details eyes closed Comments NBOS- encouraged that small ankle movements are good for strengthening PT-OP-R Modalities Start: 07/10/21 12:28 Freq: Status: Active Protocol: Document 08/02/21 07:30 AMB (Rec: 08/02/21 09:45 AMB [id number]) Hot Pack/Cold Pack Treatment CP Location R ankle Patient Position Supine Treatment Duration (minutes) 8 Patient Tolerance Good Comments end tx for pain control, less pain than when arrived. PT-OP-T Assessment and Plan Start: 07/10/21 12:28 Freq: Status: Active Protocol: Document 08/30/21 10:47 AMB (Rec: 08/30/21 11:12 AMB [id number]) Physical Therapy Assessment Goals balance Intermediate Goal (LTG) Bruno will balance on his right foot for 15 seconds or greater. LTG Duration 6 seconds transfers Short Term Goal (STG) Bruno will perform a floor transfer with 2/10 ankle pain or less. STG Duration Modified Intermediate Goal (LTG) Bruno will sit cross legged on the floor for 10 minutes without ankle pain so that he can play with his children. LTG Duration NOT MET Two Impairment pain Short Term Goal (STG) Bruno will ambulate over gravel/grass/curbs for 10 minutes without an increase in his baseline pain. STG Duration NOT MET Rubber Goods Tester Water Goal (LTG) Bruno will don/doff his socks and shoes without an increase in pain. LTG Duration NOT MET One Impairment ROM Short Term Goal (STG) Bruno will improve his pain free ankle eversion to at least 15 degrees. STG Duration NOT MET Assessment Summary Assessment Putting patient on hold for one month because he is thinking about surgery and has met his insurance maximum. He continues to have pain throughout the ankle, is not using the brace his doctor gave him around the house, but does agree to use it on uneven terrain, and continue to work on balance exercises. Physical Therapy Plan Next Visit Focus/Plan Next Visit Plan hold
--- NOTE | 2021-11-01 15:50 | PT.OPDS ---
Current Diagnoses Sprain of unspecified ligament of right ankle, initial encounter (08/30/21) Visit Care Team Role Provider Type Ronny Arreola DO Attending Provider Physician Family Provider Primary Care Provider Referring Provider Specialty: Family Practice Address: [address] [place] [address], [id number] Email: Visit Number Visit Number 9 Discharge Summary PT-OP-B Current Condition Start: 07/10/21 12:28 Freq: Status: Active Protocol: Document 07/17/21 07:32 AMB (Rec: 07/17/21 08:21 AMB [id number]) Current Condition History of Current Condition Onset Date 1.5 months ago Current Complaints R ankle pain s/p sprain History of Current Condition Sitting cross legged, driving pushing the gas pedal, working out all increase Bruno' pain. He had significant swelling after twisting his ankle while stepping off of a curb, and has not been able to return to his prior level of function of walking the dog due to continued pain. He does have history of prior ankle sprains , especially on the left side. Treatment Goals Patient/Caregiver Goals Be able to walk/sit down on the floor/stand up/workout without ankle pain. Prior Functional Status Baseline Function- ADL's Independent Baseline Function- Mobility Independent Current Functional Impairments (Reported) Functional Limitations- ADL's Pain with ambulation and advanced transfers, having to modify workout due to ankle pain Personal Factors Other Personal Factors That May Effect BMI 40-45 Therapy/Recovery PT-OP-C Subjective Start: 07/10/21 12:28 Freq: Status: Active Protocol: Document 08/30/21 10:30 AMB (Rec: 08/30/21 16:13 AMB [id number]) OP-PT Subjective Patient Comments Patient Comments Returns with MRI results and met with surgeon. Thinking about surgery in Dec. PT-OP-D Balance Start: 07/10/21 12:28 Freq: Status: Active Protocol: Document 07/17/21 07:30 AMB (Rec: 07/17/21 12:01 AMB [id number]) OP-PT Balance Assessment Standing Balance Standing Balance Comments single leg stance limited to 2 sec on R, 5-7 sec on L. pain limits Greer Fall Scale Copyright Permission PT-OP-F Manual Assessment Start: 07/10/21 12:28 Freq: Status: Active Protocol: Document 07/17/21 07:30 AMB (Rec: 07/17/21 13:01 AMB [id number]) Manual Assessments Soft Tissue Assessment Soft Tissue Mobility Assessment Tenderness over ATFL and into fibularis muscles. Swelling thorought ankle, pt does report some tenderness over achilles with heel raise. PT-OP-G Mobility & Gait Start: 07/10/21 12:28 Freq: Status: Active Protocol: Document 07/17/21 07:30 AMB (Rec: 07/17/21 12:01 AMB [id number]) OP Gait Assessment Comments Gait Comments Decreased push off on the right during terminal stance. PT-OP-J Posture/Palpation/Skin Start: 07/10/21 12:28 Freq: Status: Active Protocol: Document 07/17/21 07:30 AMB (Rec: 07/17/21 12:01 AMB [id number]) Skin Assessment Circumference Measurement 2 Location R ankle Measurement (Centimeters) 30 1 Location L ankle Measurement (Centimeters) 29 PT-OP-K Range of Motion Start: 07/10/21 12:28 Freq: Status: Active Protocol: Document 07/17/21 07:30 AMB (Rec: 07/17/21 12:01 AMB [id number]) Ankle and Foot Goniometric Range of Motion Ankle and Foot Right Passive Testing Position Sitting Dorsiflexion with Knee Flexed 5 Plantarflexion 50 Inversion 30 Eversion 5 Left Passive Testing Position Sitting Dorsiflexion with Knee Flexed 8 Plantarflexion 50 Inversion 30 Eversion 20 PT-OP-M Strength Start: 07/10/21 12:28 Freq: Status: Active Protocol: Document 07/17/21 07:30 AMB (Rec: 07/17/21 13:01 AMB [id number]) Ankle/Foot Strength Ankle and Foot Manual Muscle Testing Right Dorsiflexion (L4) 4 Good Plantarflexion (S1) 4 Good Inversion 4 Good Eversion (S1) 4- Good- Left Dorsiflexion (L4) 5 Normal Plantarflexion (S1) 4+ Good+ Inversion 5 Normal Eversion (S1) 5 Normal PT-OP-T Assessment and Plan Start: 07/10/21 12:28 Freq: Status: Active Protocol: Document 11/01/21 15:46 AMB (Rec: 07/21/22 15:50 AMB [id number]) Physical Therapy Assessment Goals balance Nursing Home Goal (LTG) Bruno will balance on his right foot for 15 seconds or greater. LTG Duration Progress made transfers Short Term Goal (STG) Bruno will perform a floor transfer with 2/10 ankle pain or less. STG Duration Modified with environmental support Nursing Home Goal (LTG) Bruno will sit cross legged on the floor for 10 minutes without ankle pain so that he can play with his children. LTG Duration Pt avoids cross legged position Two Impairment pain Short Term Goal (STG) Bruno will ambulate over gravel/grass/curbs for 10 minutes without an increase in his baseline pain. STG Duration NOT MET National Sales Consultant Goal (LTG) Bruno will don/doff his socks and shoes without an increase in pain. LTG Duration NOT MET One Impairment ROM Short Term Goal (STG) Bruno will improve his pain free ankle eversion to at least 15 degrees. STG Duration NOT MET Assessment Summary Assessment Pt was on hold for one month, he has not been seen for two months and has not called back to the clinic, therefore he is discharged at this time. He is considering surgery in the future, so would need a new referral after that. Physical Therapy Plan Discharge Physical Therapy Discharge Reasons Patient Request
== END 2021-11-05 14:40 ==
LOC: PHYS 10:30
PROVIDERS: Family Provider Family Medicine; PCP Family Medicine; Referring Provider Family Medicine; Visit Provider Family Medicine
DX: S93.401A Sprain of unspecified ligament of right ankle, initial encounter (principal)
CPT/HCPCS: 97010; 97110; 97112; 97140; 97161

== ENCOUNTER → 2022-12-12 15:42 | Outpatient (CLI) | payer OTHER, MEDICAID, SELFPAY ==
[2022-12-12 17:16] LABS: Hemoglobin A1C% w Est Avg Glu 5.3 % (4.0-6.0)
== END ==
PROVIDERS: Family Provider Family Medicine; PCP Family Medicine; Referring Provider Physician Assistant; Visit Provider Physician Assistant
DX: Z13.1 Encounter for screening for diabetes mellitus (principal)
CPT/HCPCS: 36415; 83036

== ENCOUNTER → 2022-12-23 15:54 | Outpatient (CLI) | payer OTHER, MEDICAID, SELFPAY ==
--- NOTE | 2022-12-23 15:55 | DI.RAD.S_ITS ---
PROCEDURE: XR SHOULDER RT MIN 2V INDICATIONS: chronic pain for years, hx subluxation/fracture TECHNIQUE: 3 views of the shoulder were acquired. COMPARISON: [facility], , SHOULDER MINIMUM 2VIEW RIGHT, 07/25/2015, 10:36. FINDINGS: Bones: No acute fractures or dislocations. No suspicious bony lesions. Visualized ribs appear intact. Mild degenerative changes at the glenohumeral joint. Soft tissues: No suspicious soft tissue calcifications. IMPRESSION: Mild glenohumeral osteoarthrosis. No acute osseous abnormality. If the symptoms persist, consider cross sectional imaging such as MRI or CT for further assessment. Approved by: Agustin Wakefield M.D. on 12/23/2022 at 17:05
== END ==
PROVIDERS: Family Provider Family Medicine; PCP Family Medicine; Referring Provider Physician Assistant; Visit Provider Physician Assistant
DX: S42.143A Displaced fracture of glenoid cavity of scapula, unspecified shoulder, initial encounter for closed fracture (principal); S42.153A Displaced fracture of neck of scapula, unspecified shoulder, initial encounter for closed fracture; S43.003A Unspecified subluxation of unspecified shoulder joint, initial encounter; M19.011 Primary osteoarthritis, right shoulder; M25.519 Pain in unspecified shoulder; G89.29 Other chronic pain
CPT/HCPCS: 73030

== ENCOUNTER → 2023-01-10 15:53 | Outpatient (CLI) | payer OTHER, MEDICAID, SELFPAY ==
[2023-01-10 16:17] LABS: Semen Sperm Prescence Post-Vas Absent (ABSENT)
== END ==
PROVIDERS: Family Provider Family Medicine; PCP Student in an Organized Health Care Education/Training Program; Referring Provider Specialist; Visit Provider Specialist
DX: Z98.52 Vasectomy status (principal)
CPT/HCPCS: 89321

== ENCOUNTER → 2023-02-08 09:00 | Outpatient (CLI) | payer OTHER, MEDICAID, SELFPAY ==
[2023-02-08 11:17] LABS: Add Manual Diff / Slide Review NO; Basophils Absolute Auto 0 /uL (0-100); Basophils Percent Auto 0.6 % (0-2); Eosinophils Absolute Auto 200 /uL (0-450); Eosinophils Percent Auto 3.7 % (2-4); Hematocrit 48.2 % (41-53); Hemoglobin 16.3 g/dL (13.5-17.5); Lymphocytes Absolute Auto 1700 /uL (1100-4500); Lymphocytes Percent Auto 25.3 % (25-40); Mean Corpuscular HGB Conc 33.9 % (30-36); Mean Corpuscular Hemoglobin 28.9 PG (26-34); Mean Corpuscular Volume 85.1 fL (80-100); Monocytes Absolute Auto 600 /uL (0-900); Monocytes Percent Auto 8.6 % (3-14); Neutrophils Absolute Auto 4100 /uL (1500-7000); Neutrophils Percent Auto 61.8 % (50-75); Platelet Count 201 X10^3/uL (150-400); Red Blood Cell Count 5.66 X10^6/uL (4.5-5.9); Red Cell Distribution Width 13.5 % (11.6-14.8); White Blood Cell Count 6.7 X10^3/uL (4.5-11.0)
[2023-02-08 11:30] LABS: Hemoglobin A1C% w Est Avg Glu 5.7 % (4.0-6.0)
[2023-02-08 11:38] LABS: Alanine Aminotransferase 37 IU/L (<50); Albumin 4.4 g/dL (3.5-5.0); Albumin Globulin Ratio 1.5 (1.0-2.8); Alkaline Phosphatase 60 U/L (38-126); Aspartate Aminotransferase 31 IU/L (17-59); BUN Creatinine Ratio 20.2 (6-22); Bilirubin Total 0.4 mg/dL (0.2-1.3); Blood Urea Nitrogen 17 mg/dL (9-20); Calcium 9.9 mg/dL (8.4-10.2); Carbon Dioxide 31 mmol/L (22-32); Chloride 99 mmol/L (98-107); Cholesterol 182 mg/dL (140-199); Estimated Glomerular Filt Rate > 60 mL/min (>60); Globulin 2.9 g/dL (1.7-4.1); Glucose 97 mg/dL (70-100); HDL Cholesterol 51 mg/dL (40-60); HEMOLYSIS < 15 (0-50); LDL Cholesterol Calculated 100 mg/dL (<100); Potassium 4.3 mmol/L (3.4-5.1); Sodium 136 mmol/L (137-145); Total Protein 7.3 g/dL (6.3-8.2); Triglycerides 156 mg/dL (35-150)
[2023-02-08 12:01] LABS: Vitamin D 25 Hydroxy (D3) 21.9 ng/mL (30.0-100.0)
[2023-02-08 12:14] LABS: Thyroid Stimulating Hormone 2.15 uIU/mL (0.47-4.68)
== END ==
PROVIDERS: Family Provider Family Medicine; PCP Student in an Organized Health Care Education/Training Program; Referring Provider Student in an Organized Health Care Education/Training Program; Visit Provider Student in an Organized Health Care Education/Training Program
DX: Z13.1 Encounter for screening for diabetes mellitus (principal)
CPT/HCPCS: 36415; 80053; 80061; 82306; 83036; 84443; 85025

== ENCOUNTER 2023-02-20 16:45 | Outpatient (RCR) | payer OTHER, MEDICAID, SELFPAY ==
--- NOTE | 2023-01-10 17:41 | PT.OIE ---
Current Diagnoses Other chronic pain (01/10/23) Pain in unspecified shoulder (01/10/23) Past Medical History (Last Updated 10/17/22 @ 16:34 by Yonathan Bravo MD) Acute pain of left knee Ankle pain (~2009) Anxiety (~2003) BMI 40.0-44.9, adult Chicken pox (~1988) Chronic back pain (~2013) Chronic pain of left ankle Constipation Depression (~2003) Diverticulitis Encounter for sterilization Knee effusion, left Right ankle instability Right ankle sprain Shoulder pain (~2015) Sterilization consult Ventral hernia without obstruction or gangrene Visit Care Team Role Provider Type Liss Pandya MD Primary Care Provider Physician Specialty: Family Practice Obstetrics Address: [address] [place] [address], [id number] Phone: Fax: Email: [email or web address] Clarence Arreola DO Family Provider Physician Specialty: Family Practice Address: [address] [place] [address], [facility] Email: Kayla Bradley PA-C Attending Provider Advanced Cane Weigher Referring Provider Specialty: Medical Wound Care Address: [address] [place] [address], [id number] Email: [email or web address] Physical Therapy Initial Evaluation PT-OP-A Visit Information Start: 01/10/23 16:05 Freq: Status: Active Protocol: Document 01/10/23 17:31 ED (Rec: 01/10/23 17:41 ED [id number]) Out-Patient Physical Therapy Visit Information Visit Information Visit Type Initial Evaluation Visit Start Time 16:05 Visit Stop Time 16:45 Total Visit Minutes 40 Visit Number 1 Evaluation Information Evaluation Date 01/10/23 PT-OP-B Current Condition Start: 01/10/23 16:05 Freq: Status: Active Protocol: Document 01/10/23 17:31 ED (Rec: 01/10/23 17:41 ED [id number]) Current Condition History of Current Condition Onset Date 2016 Current Complaints R shoulder History of Current Condition pt states that he fell on his outstretched arm in 2015 that resulted in a labral tear and possible fracture of his glenoid or humerus; he does not remember all the details from his old MRI. He has had PT before that helped somewhat . This week has been good for his arm but has had recent weeks where he is unable to lift it past 90 degrees. He does lift weights but has had to modify his routine d/t shoulder weakness and pain. He is hoping to get an MRI and needed to do 6 weeks of PT first. 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 Treatment Goals Patient/Caregiver Goals Have use of arm c/o pain including throwing a ball and fishing PT-OP-C Subjective Start: 01/10/23 17:30 Freq: Status: Active Protocol: Document 01/10/23 17:31 ED (Rec: 01/10/23 17:41 ED [id number]) Patient Questionnaires Quick Dash- Upper Extremity Quick Dash UE Score 47.7 / 100 = 47.7 % Quick Dash UE Impairment 40 to 59% Impaired (Score 40- 59) PT-OP-K Range of Motion Start: 01/10/23 16:05 Freq: Status: Active Protocol: Document 01/10/23 17:31 ED (Rec: 01/10/23 17:41 ED [id number]) Shoulder Goniometric Range of Motion Shoulder Left Active Shoulder ROM WFL Yes Testing Position Sitting Flexion 160 Abduction 170 External Rotation at 90 degrees 80 Abduction Right Active Shoulder ROM WFL Yes Testing Position Sitting Flexion 135 Abduction 155 External Rotation at 90 degrees 60 Abduction PT-OP-L Special Tests Start: 01/10/23 16:05 Freq: Status: Active Protocol: Document 01/10/23 17:31 ED (Rec: 01/10/23 17:41 ED [id number]) Special Tests Shoulder Special Tests Biceps Load II Test Test Results + PT-OP-M Strength Start: 01/10/23 16:05 Freq: Status: Active Protocol: Document 01/10/23 17:31 ED (Rec: 01/10/23 17:41 ED [id number]) Shoulder Strength Shoulder Manual Muscle Testing Right Flexion 4- Good- Abduction (C5) 4- Good- External Rotation 3+ Fair+ PT-OP-T Assessment and Plan Start: 01/10/23 16:05 Freq: Status: Active Protocol: Document 01/10/23 17:31 ED (Rec: 01/10/23 17:41 ED [id number]) Physical Therapy Assessment Rehab Potential Rehabilitation Potential Good Evaluation Complexity Number of Personal Factors/Comorbidities 1-2 Number of Body Systems Impaired 1-2 Clinical Presentation at Evaluation Stable Impairments Impairments Functional Activities, Functional Mobility,Pain,ROM, Strength Goals QuickDASH Prison Goal (LTG) Pt will improve QuickDASH by > 10 points to a score <37/100. LTG Duration 6-8 weeks MMT Impairment MMT Therapist Rrt Goal (LTG) Pt will have 4/5 or greater during MMT of R shoulder into flexion, abduction, and/or ER. LTG Duration 6-8 weeks AROM Impairment AROM Short Term Goal (STG) Pt will be able to raise arm in flexion to 150 degrees and/ or abduction to 160 degrees c/ pain <3/10. STG Duration 3 weeks Prison Goal (LTG) Pt will have ROM within 5 degrees for L and R shoulder c / pain <3/10. LTG Duration 6-8 weks HEP Impairment HEP Short Term Goal (STG) Pt will report performing HEP >3 days/week. STG Duration 3 weeks. Therapist Rrt Goal (LTG) Pt will report performing HEP >3 days/week. LTG Duration 6-8 weeks Assessment Summary Assessment Pt reported to PT d/t chronic R shoulder pain d/t a traumatic injury around 2015 when he fell on his outstretched arm. Pt demonstrated reduced AROM of R shoulder c/ pain noted at end range primarily in his anterior shoulder. Pt also demonstrated reduced strength in R shoulder into flexion, abduction, and ER. Pt does show fair overall functionality of R shoulder but it is significantly lacking compared to L shoulder . Pt does have a job and recreational hobbies that require use of his R UE but he is limited in what he can do. PT and patient spoke at length on weight training around an injury and ways to modify it so he can improve his strength and ROM but also staying below a painful threshold. PT provided initial HEP of : elevated bicep curls , elevated tricep extension, scaption isometrics, and external rotation movements. Pt able to do movements today c/o pain. Physical Therapy Plan Frequency and Duration Frequency of Treatment 2x/Week Duration of treatment (weeks) 10 Plan of Care Start Date 01/10/23 Plan of Care End Date 04/10/23 Therapeutic Interventions Therapeutic Interventions Home Exercise Program,Joint Mobilizations,Manual Therapy, Neuromuscular Re-education, Patient/Caregiver Education, Self-Care/Home Management,Soft Tissue Mobilization,Taping, Therapeutic Activities, Therapeutic Exercises Modalities Biofeedback,Cold Pack/Ice Massage,Electric Stimulation, Hot Packs,Ultrasound Next Visit Focus/Plan Next Note Type Treatment Note Next Visit Plan HEP (elevated bicep curl/ tricep extension, s/l ER, scaption isometrics), lateral raise, uni pull down/SAPD, ER walkouts, floor press
--- NOTE | 2023-01-10 17:41 | PT.OPPOC ---
Physical, Occupational & Speech Therapy At [facility] Current Diagnoses Other chronic pain (01/10/23) Pain in unspecified shoulder (01/10/23) Visit Care Team Role Provider Type Liss Pandya MD Primary Care Provider Physician Specialty: Family Practice Obstetrics Address: [address] [place] [address], [id number] Phone: Fax: Email: [email or web address] Clarence Arreola DO Family Provider Physician Specialty: Family Practice Address: [address] [place] [address], [facility] Email: Kayla Bradley PA-C Attending Provider Advanced Audio Production Instructor Referring Provider Specialty: Medical Wound Care Address: [address] [place] [address], [facility] Email: [email or web address] Plan Of Care PT-OP-T Assessment and Plan Start: 01/10/23 16:05 Freq: Status: Active Protocol: Document 01/10/23 17:31 ED (Rec: 01/10/23 17:41 ED [id number]) Physical Therapy Assessment Rehab Potential Rehabilitation Potential Good Evaluation Complexity Number of Personal Factors/Comorbidities 1-2 Number of Body Systems Impaired 1-2 Clinical Presentation at Evaluation Stable Impairments Impairments Functional Activities, Functional Mobility,Pain,ROM, Strength Goals QuickDASH Aircraft Engine Cylinder Mechanic Goal (LTG) Pt will improve QuickDASH by > 10 points to a score <37/100. LTG Duration 6-8 weeks MMT Impairment MMT [facility] Goal (LTG) Pt will have 4/5 or greater during MMT of R shoulder into flexion, abduction, and/or ER. LTG Duration 6-8 weeks AROM Impairment AROM Short Term Goal (STG) Pt will be able to raise arm in flexion to 150 degrees and/ or abduction to 160 degrees c/ pain <3/10. STG Duration 3 weeks [facility] Goal (LTG) Pt will have ROM within 5 degrees for L and R shoulder c / pain <3/10. LTG Duration 6-8 weks HEP Impairment HEP Short Term Goal (STG) Pt will report performing HEP >3 days/week. STG Duration 3 weeks. Aircraft Engine Cylinder Mechanic Goal (LTG) Pt will report performing HEP >3 days/week. LTG Duration 6-8 weeks Assessment Summary Assessment Pt reported to PT d/t chronic R shoulder pain d/t a traumatic injury around 2015 when he fell on his outstretched arm. Pt demonstrated reduced AROM of R shoulder c/ pain noted at end range primarily in his anterior shoulder. Pt also demonstrated reduced strength in R shoulder into flexion, abduction, and ER. Pt does show fair overall functionality of R shoulder but it is significantly lacking compared to L shoulder . Pt does have a job and recreational hobbies that require use of his R UE but he is limited in what he can do. PT and patient spoke at length on weight training around an injury and ways to modify it so he can improve his strength and ROM but also staying below a painful threshold. PT provided initial HEP of : elevated bicep curls , elevated tricep extension, scaption isometrics, and external rotation movements. Pt able to do movements today c/o pain. Physical Therapy Plan Frequency and Duration Frequency of Treatment 2x/Week Duration of treatment (weeks) 10 Plan of Care Start Date 01/10/23 Plan of Care End Date 04/10/23 Therapeutic Interventions Therapeutic Interventions Home Exercise Program,Joint Mobilizations,Manual Therapy, Neuromuscular Re-education, Patient/Caregiver Education, Self-Care/Home Management,Soft Tissue Mobilization,Taping, Therapeutic Activities, Therapeutic Exercises Modalities Biofeedback,Cold Pack/Ice Massage,Electric Stimulation, Hot Packs,Ultrasound Next Visit Focus/Plan Next Note Type Treatment Note Next Visit Plan HEP (elevated bicep curl/ tricep extension, s/l ER, scaption isometrics), lateral raise, uni pull down/SAPD, ER walkouts, floor press Plan of Care Dates Plan of Care Start Date 01/10/23 Plan of Care End Date 04/10/23 Electronically Signed by: Isac Watts, PT 01/10/23 [id number] If you are in agreement with this Plan of Care, please return a signed and dated copy. I have reviewed this Plan of Care and certify that the skilled therapy services above are required to meet the patient?s needs. Physician Signature Date Printed Name and Credentials Clinical Instructor Signature Printed Name and Credentials
--- NOTE | 2023-01-14 16:34 | PT.OTN ---
Current Diagnoses Other chronic pain (01/14/23) Pain in unspecified shoulder (01/14/23) Physical Therapy Treatment Note PT-OP-A Visit Information Start: 01/10/23 16:05 Freq: Status: Active Protocol: Document 01/14/23 16:30 ED (Rec: 01/14/23 16:34 ED [id number]) Out-Patient Physical Therapy Visit Information Visit Information Visit Type Treatment Note Visit Start Time 16:00 Visit Stop Time 16:30 Total Visit Minutes 30 Visit Number 2 PT-OP-B Current Condition Start: 01/10/23 16:05 Freq: Status: Active Protocol: Document 01/10/23 17:31 ED (Rec: 01/10/23 17:41 ED [id number]) Current Condition History of Current Condition Onset Date 2015 Current Complaints R shoulder History of Current Condition pt states that he fell on his outstretched arm in 2015 that resulted in a labral tear and possible fracture of his glenoid or humerus; he does not remember all the details from his old MRI. He has had PT before that helped somewhat . This week has been good for his arm but has had recent weeks where he is unable to lift it past 90 degrees. He does lift weights but has had to modify his routine d/t shoulder weakness and pain. He is hoping to get an MRI and needed to do 6 weeks of PT first. 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 Treatment Goals Patient/Caregiver Goals Have use of arm c/o pain including throwing a ball and fishing PT-OP-C Subjective Start: 01/10/23 17:30 Freq: Status: Active Protocol: Document 01/14/23 16:30 ED (Rec: 01/14/23 16:34 ED [id number]) OP-PT Subjective Patient Comments Patient Comments Pt is requesting to be done by 4:30 today so he can take his child to soccer. PT-OP-K Range of Motion Start: 01/10/23 16:05 Freq: Status: Active Protocol: Document 01/10/23 17:31 ED (Rec: 01/10/23 17:41 ED [id number]) Shoulder Goniometric Range of Motion Shoulder Left Active Shoulder ROM WFL Yes Testing Position Sitting Flexion 160 Abduction 170 External Rotation at 90 degrees 80 Abduction Right Active Shoulder ROM WFL Yes Testing Position Sitting Flexion 135 Abduction 155 External Rotation at 90 degrees 60 Abduction PT-OP-L Special Tests Start: 01/10/23 16:05 Freq: Status: Active Protocol: Document 01/10/23 17:31 ED (Rec: 01/10/23 17:41 ED [id number]) Special Tests Shoulder Special Tests Biceps Load II Test Test Results + PT-OP-M Strength Start: 01/10/23 16:05 Freq: Status: Active Protocol: Document 01/10/23 17:31 ED (Rec: 01/10/23 17:41 ED [id number]) Shoulder Strength Shoulder Manual Muscle Testing Right Flexion 4- Good- Abduction (C5) 4- Good- External Rotation 3+ Fair+ PT-OP-Q Treatments Start: 01/10/23 16:05 Freq: Status: Active Protocol: Document 01/14/23 16:30 ED (Rec: 01/14/23 16:34 ED [id number]) Therapeutic Exercises Prone Exercises plank Prone Exercise Name table plank Reps/Minutes 1x30'', 1x10 taps/arm Comments c/ shoulder taps Sitting Exercises lat pull down Sitting Exercise Name lat pull down Resistance L4 Reps/Minutes 3x15 Standing Exercises face pull Standing Exercise Name banded T Resistance pink Reps/Minutes 1x15 landmine press Equipment Used 10# & dowel Reps/Minutes 1x15 isotonic ER Standing Exercise Name cable ER @ 0 Resistance L1 Reps/Minutes 1x15 ER walkouts Resistance pink band Reps/Minutes 3x10 PT-OP-T Assessment and Plan Start: 01/10/23 16:05 Freq: Status: Active Protocol: Document 01/14/23 16:30 ED (Rec: 01/14/23 16:34 ED [id number]) Physical Therapy Assessment Goals QuickDASH Group Home Goal (LTG) Pt will improve QuickDASH by > 10 points to a score <37/100. LTG Duration 6-8 weeks MMT Impairment MMT Group Home Goal (LTG) Pt will have 4/5 or greater during MMT of R shoulder into flexion, abduction, and/or ER. LTG Duration 6-8 weeks AROM Impairment AROM Short Term Goal (STG) Pt will be able to raise arm in flexion to 150 degrees and/ or abduction to 160 degrees c/ pain <3/10. STG Duration 3 weeks Group Home Goal (LTG) Pt will have ROM within 5 degrees for L and R shoulder c / pain <3/10. LTG Duration 6-8 weks HEP Impairment HEP Short Term Goal (STG) Pt will report performing HEP >3 days/week. STG Duration 3 weeks. Group Home Goal (LTG) Pt will report performing HEP >3 days/week. LTG Duration 6-8 weeks Assessment Summary Assessment Pt demonstrating ROM limitations today after acute exacerbation at work today. Pt consistently demonstrated pain when raising his arm in the scaption plane. PT educated patient on training shoulder especially in stability d/t his history of labral tear and trying to compensate for the lack of stability resultant from the labral pathology. Physical Therapy Plan Frequency and Duration Frequency of Treatment 2x/Week Duration of treatment (weeks) 10 Plan of Care Start Date 01/10/23 Plan of Care End Date 04/10/23 Therapeutic Interventions Therapeutic Interventions Home Exercise Program,Joint Mobilizations,Manual Therapy, Neuromuscular Re-education, Patient/Caregiver Education, Self-Care/Home Management,Soft Tissue Mobilization,Taping, Therapeutic Activities, Therapeutic Exercises Modalities Biofeedback,Cold Pack/Ice Massage,Electric Stimulation, Hot Packs,Ultrasound Next Visit Focus/Plan Next Note Type Treatment Note Next Visit Plan HEP (elevated bicep curl/ tricep extension, s/l ER, scaption isometrics), lateral raise, uni pull down/SAPD, ER walkouts, floor press
--- NOTE | 2023-01-17 16:33 | PT.OTN ---
Current Diagnoses Other chronic pain (01/17/23) Pain in unspecified shoulder (01/17/23) Physical Therapy Treatment Note PT-OP-A Visit Information Start: 01/10/23 16:05 Freq: Status: Active Protocol: Document 01/17/23 16:30 ED (Rec: 01/17/23 16:33 ED [id number]) Out-Patient Physical Therapy Visit Information Visit Information Visit Type Treatment Note Visit Start Time 16:00 Visit Stop Time 16:30 Total Visit Minutes 30 Visit Number 3 PT-OP-B Current Condition Start: 01/10/23 16:05 Freq: Status: Active Protocol: Document 01/10/23 17:31 ED (Rec: 01/10/23 17:41 ED [id number]) Current Condition History of Current Condition Onset Date 2015 Current Complaints R shoulder History of Current Condition pt states that he fell on his outstretched arm in 2015 that resulted in a labral tear and possible fracture of his glenoid or humerus; he does not remember all the details from his old MRI. He has had PT before that helped somewhat . This week has been good for his arm but has had recent weeks where he is unable to lift it past 90 degrees. He does lift weights but has had to modify his routine d/t shoulder weakness and pain. He is hoping to get an MRI and needed to do 6 weeks of PT first. 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 Treatment Goals Patient/Caregiver Goals Have use of arm c/o pain including throwing a ball and fishing PT-OP-C Subjective Start: 01/10/23 17:30 Freq: Status: Active Protocol: Document 01/17/23 16:30 ED (Rec: 01/17/23 16:33 ED [id number]) OP-PT Subjective Patient Comments Patient Comments Pt states that his R shoulder is hurting him a decent amount today. He is unsure of how much he can do for rehab today . PT-OP-K Range of Motion Start: 01/10/23 16:05 Freq: Status: Active Protocol: Document 01/10/23 17:31 ED (Rec: 01/10/23 17:41 ED [id number]) Shoulder Goniometric Range of Motion Shoulder Left Active Shoulder ROM WFL Yes Testing Position Sitting Flexion 160 Abduction 170 External Rotation at 90 degrees 80 Abduction Right Active Shoulder ROM WFL Yes Testing Position Sitting Flexion 135 Abduction 155 External Rotation at 90 degrees 60 Abduction PT-OP-L Special Tests Start: 01/10/23 16:05 Freq: Status: Active Protocol: Document 01/10/23 17:31 ED (Rec: 01/10/23 17:41 ED [id number]) Special Tests Shoulder Special Tests Biceps Load II Test Test Results + PT-OP-M Strength Start: 01/10/23 16:05 Freq: Status: Active Protocol: Document 01/10/23 17:31 ED (Rec: 01/10/23 17:41 ED [id number]) Shoulder Strength Shoulder Manual Muscle Testing Right Flexion 4- Good- Abduction (C5) 4- Good- External Rotation 3+ Fair+ PT-OP-Q Treatments Start: 01/10/23 16:05 Freq: Status: Active Protocol: Document 01/17/23 16:30 ED (Rec: 01/17/23 16:33 ED [id number]) Therapeutic Exercises Standing Exercises bicep curl Standing Exercise Name GH extended bicep curl Side right Resistance L2 Equipment Used cable Reps/Minutes 2x15 pec fly Standing Exercise Name pec fly Resistance OTB Reps/Minutes 2x15 shoulder raises Standing Exercise Name lateral raise; isometric hold Equipment Used 2# Reps/Minutes 3x12 Comments isometric hold; contralateral isotonics row Standing Exercise Name cable ro Resistance L5 Equipment Used cable Reps/Minutes 3x10 Comments full scapular protraction IR Standing Exercise Name cable IR Resistance L2 Reps/Minutes 3x10 ER walkouts Resistance OTB Reps/Minutes 3x10 PT-OP-T Assessment and Plan Start: 01/10/23 16:05 Freq: Status: Active Protocol: Document 01/17/23 16:30 ED (Rec: 01/17/23 16:33 ED [id number]) Physical Therapy Assessment Goals QuickDASH Manager Personnel Selection Goal (LTG) Pt will improve QuickDASH by > 10 points to a score <37/100. LTG Duration 6-8 weeks MMT Impairment MMT Manager Personnel Selection Goal (LTG) Pt will have 4/5 or greater during MMT of R shoulder into flexion, abduction, and/or ER. LTG Duration 6-8 weeks AROM Impairment AROM Short Term Goal (STG) Pt will be able to raise arm in flexion to 150 degrees and/ or abduction to 160 degrees c/ pain <3/10. STG Duration 3 weeks Group Home Goal (LTG) Pt will have ROM within 5 degrees for L and R shoulder c / pain <3/10. LTG Duration 6-8 weks HEP Impairment HEP Short Term Goal (STG) Pt will report performing HEP >3 days/week. STG Duration 3 weeks. Manager Personnel Selection Goal (LTG) Pt will report performing HEP >3 days/week. 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 Pt appears to be fairly confident that he will get an MRI and subsequent shoulder surgery for his R shoulder. Does not seem to think that rehab will be able to improve his pain and/or function of his R shoulder. Physical Therapy Plan Frequency and Duration Frequency of Treatment 2x/Week Duration of treatment (weeks) 10 Plan of Care Start Date 01/10/23 Plan of Care End Date 04/10/23 Therapeutic Interventions Therapeutic Interventions Home Exercise Program,Joint Mobilizations,Manual Therapy, Neuromuscular Re-education, Patient/Caregiver Education, Self-Care/Home Management,Soft Tissue Mobilization,Taping, Therapeutic Activities, Therapeutic Exercises Modalities Biofeedback,Cold Pack/Ice Massage,Electric Stimulation, Hot Packs,Ultrasound Next Visit Focus/Plan Next Note Type Treatment Note Next Visit Plan HEP (elevated bicep curl/ tricep extension, s/l ER, scaption isometrics), lateral raise, uni pull down/SAPD, ER walkouts, floor press
--- NOTE | 2023-02-04 17:15 | PT.OTN ---
Current Diagnoses Other chronic pain (02/04/23) Pain in unspecified shoulder (02/04/23) Physical Therapy Treatment Note PT-OP-A Visit Information Start: 01/10/23 16:05 Freq: Status: Active Protocol: Document 02/04/23 17:10 ED (Rec: 02/04/23 17:15 ED [id number]) Out-Patient Physical Therapy Visit Information Visit Information Visit Type Treatment Note Visit Start Time 16:35 Visit Stop Time 16:15 Total Visit Minutes 40 Visit Number 4 PT-OP-B Current Condition Start: 01/10/23 16:05 Freq: Status: Active Protocol: Document 01/10/23 17:31 ED (Rec: 01/10/23 17:41 ED [id number]) Current Condition History of Current Condition Onset Date 2015 Current Complaints R shoulder History of Current Condition pt states that he fell on his outstretched arm in 2015 that resulted in a labral tear and possible fracture of his glenoid or humerus; he does not remember all the details from his old MRI. He has had PT before that helped somewhat . This week has been good for his arm but has had recent weeks where he is unable to lift it past 90 degrees. He does lift weights but has had to modify his routine d/t shoulder weakness and pain. He is hoping to get an MRI and needed to do 6 weeks of PT first. 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 Treatment Goals Patient/Caregiver Goals Have use of arm c/o pain including throwing a ball and fishing PT-OP-C Subjective Start: 01/10/23 17:30 Freq: Status: Active Protocol: Document 02/04/23 17:10 ED (Rec: 02/04/23 17:15 ED [id number]) OP-PT Subjective Patient Comments Patient Comments Pt states his shoulder hurt for a few days after his lifting session last week. It' s feeling better today. PT-OP-K Range of Motion Start: 01/10/23 16:05 Freq: Status: Active Protocol: Document 01/10/23 17:31 ED (Rec: 01/10/23 17:41 ED [id number]) Shoulder Goniometric Range of Motion Shoulder Left Active Shoulder ROM WFL Yes Testing Position Sitting Flexion 160 Abduction 170 External Rotation at 90 degrees 80 Abduction Right Active Shoulder ROM WFL Yes Testing Position Sitting Flexion 135 Abduction 155 External Rotation at 90 degrees 60 Abduction PT-OP-L Special Tests Start: 01/10/23 16:05 Freq: Status: Active Protocol: Document 01/10/23 17:31 ED (Rec: 01/10/23 17:41 ED [id number]) Special Tests Shoulder Special Tests Biceps Load II Test Test Results + PT-OP-M Strength Start: 01/10/23 16:05 Freq: Status: Active Protocol: Document 01/10/23 17:31 ED (Rec: 01/10/23 17:41 ED [id number]) Shoulder Strength Shoulder Manual Muscle Testing Right Flexion 4- Good- Abduction (C5) 4- Good- External Rotation 3+ Fair+ PT-OP-Q Treatments Start: 01/10/23 16:05 Freq: Status: Active Protocol: Document 02/04/23 17:10 ED (Rec: 02/04/23 17:15 ED [id number]) Therapeutic Exercises Sidelying Exercises s/l ER Sidelying Exercise Name s/l ER Resistance 3# Equipment Used dB Reps/Minutes 3x10 Sitting Exercises lat pull down Sitting Exercise Name lat pull down Side right Resistance L4 Reps/Minutes 3x15 Standing Exercises tricep extension Standing Exercise Name OH tricep extension Side right Resistance L2 Equipment Used cable column Reps/Minutes 2x10 pec fly Standing Exercise Name pec fly Resistance L2 Equipment Used cable column Reps/Minutes 3x15 shoulder raises Standing Exercise Name lateral raise; isometric hold Equipment Used 10# Reps/Minutes 3x12 row Standing Exercise Name cable row Side right Resistance L5 Equipment Used cable Reps/Minutes 3x10 Comments full scapular protraction PT-OP-T Assessment and Plan Start: 01/10/23 16:05 Freq: Status: Active Protocol: Document 02/04/23 17:10 ED (Rec: 02/04/23 17:15 ED [id number]) Physical Therapy Assessment Goals QuickDASH Retirement Goal (LTG) Pt will improve QuickDASH by > 10 points to a score <37/100. LTG Duration 6-8 weeks MMT Impairment MMT Barbed Wire Machine Operator Goal (LTG) Pt will have 4/5 or greater during MMT of R shoulder into flexion, abduction, and/or ER. LTG Duration 6-8 weeks AROM Impairment AROM Short Term Goal (STG) Pt will be able to raise arm in flexion to 150 degrees and/ or abduction to 160 degrees c/ pain <3/10. STG Duration 3 weeks Retirement Goal (LTG) Pt will have ROM within 5 degrees for L and R shoulder c / pain <3/10. LTG Duration 6-8 weks HEP Impairment HEP Short Term Goal (STG) Pt will report performing HEP >3 days/week. STG Duration 3 weeks. Retirement Goal (LTG) Pt will report performing HEP >3 days/week. LTG Duration 6-8 weeks Assessment Summary Assessment Pt effectively able to do all movements today with slight modifications. Pt rated pec flys as most challenging movement; PT had patient rotate body to reduce horizontal abduction ROM requirements. Was otherwise able to perform all movements comfortably. Physical Therapy Plan Frequency and Duration Frequency of Treatment 2x/Week Duration of treatment (weeks) 10 Plan of Care Start Date 01/10/23 Plan of Care End Date 04/10/23 Therapeutic Interventions Therapeutic Interventions Home Exercise Program,Joint Mobilizations,Manual Therapy, Neuromuscular Re-education, Patient/Caregiver Education, Self-Care/Home Management,Soft Tissue Mobilization,Taping, Therapeutic Activities, Therapeutic Exercises Modalities Biofeedback,Cold Pack/Ice Massage,Electric Stimulation, Hot Packs,Ultrasound Next Visit Focus/Plan Next Note Type Treatment Note Next Visit Plan HEP (elevated bicep curl/ tricep extension, s/l ER, scaption isometrics), lateral raise, uni pull down/SAPD, ER walkouts, floor press
--- NOTE | 2023-02-11 17:18 | PT.OTN ---
Current Diagnoses Other chronic pain (02/11/23) Pain in unspecified shoulder (02/11/23) Physical Therapy Treatment Note PT-OP-A Visit Information Start: 01/10/23 16:05 Freq: Status: Active Protocol: Document 02/11/23 17:13 ED (Rec: 02/11/23 17:18 ED [id number]) Out-Patient Physical Therapy Visit Information Visit Information Visit Type Treatment Note Visit Start Time 16:45 Visit Stop Time 17:15 Total Visit Minutes 30 Visit Number 5 PT-OP-B Current Condition Start: 01/10/23 16:05 Freq: Status: Active Protocol: Document 01/10/23 17:31 ED (Rec: 01/10/23 17:41 ED [id number]) Current Condition History of Current Condition Onset Date 2015 Current Complaints R shoulder History of Current Condition pt states that he fell on his outstretched arm in 2015 that resulted in a labral tear and possible fracture of his glenoid or humerus; he does not remember all the details from his old MRI. He has had PT before that helped somewhat . This week has been good for his arm but has had recent weeks where he is unable to lift it past 90 degrees. He does lift weights but has had to modify his routine d/t shoulder weakness and pain. He is hoping to get an MRI and needed to do 6 weeks of PT first. 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 Treatment Goals Patient/Caregiver Goals Have use of arm c/o pain including throwing a ball and fishing PT-OP-C Subjective Start: 01/10/23 17:30 Freq: Status: Active Protocol: Document 02/11/23 17:13 ED (Rec: 02/11/23 17:18 ED [id number]) OP-PT Subjective Patient Comments Patient Comments Pt states his shoulder was a little sore after previous session but is feeling back to normal today. PT-OP-K Range of Motion Start: 01/10/23 16:05 Freq: Status: Active Protocol: Document 01/10/23 17:31 ED (Rec: 01/10/23 17:41 ED [id number]) Shoulder Goniometric Range of Motion Shoulder Left Active Shoulder ROM WFL Yes Testing Position Sitting Flexion 160 Abduction 170 External Rotation at 90 degrees 80 Abduction Right Active Shoulder ROM WFL Yes Testing Position Sitting Flexion 135 Abduction 155 External Rotation at 90 degrees 60 Abduction PT-OP-L Special Tests Start: 01/10/23 16:05 Freq: Status: Active Protocol: Document 01/10/23 17:31 ED (Rec: 01/10/23 17:41 ED [id number]) Special Tests Shoulder Special Tests Biceps Load II Test Test Results + PT-OP-M Strength Start: 01/10/23 16:05 Freq: Status: Active Protocol: Document 01/10/23 17:31 ED (Rec: 01/10/23 17:41 ED [id number]) Shoulder Strength Shoulder Manual Muscle Testing Right Flexion 4- Good- Abduction (C5) 4- Good- External Rotation 3+ Fair+ PT-OP-Q Treatments Start: 01/10/23 16:05 Freq: Status: Active Protocol: Document 02/11/23 17:13 ED (Rec: 02/11/23 17:18 ED [id number]) Therapeutic Exercises Sidelying Exercises s/l ER Sidelying Exercise Name s/l ER drop sets Resistance 3# > 1# Equipment Used dB Reps/Minutes 3x10 Sitting Exercises OH press Sitting Exercise Name DB OH press Resistance 15# Equipment Used db Reps/Minutes 3x10 lat pull down Sitting Exercise Name lat pull down Side right Resistance L4 Reps/Minutes 3x15 Standing Exercises shoulder raises Standing Exercise Name lateral raise Resistance 10# Equipment Used cable column Reps/Minutes 3x12 Comments eccentric lower row Standing Exercise Name cable row Side right Resistance L5 Equipment Used cable Reps/Minutes 3x10 Comments full scapular protraction isotonic ER Standing Exercise Name ER wall throws Resistance 1# Reps/Minutes 3x10 PT-OP-T Assessment and Plan Start: 01/10/23 16:05 Freq: Status: Active Protocol: Document 02/11/23 17:13 ED (Rec: 02/11/23 17:18 ED [id number]) Physical Therapy Assessment Goals QuickDASH Client Account Manager Goal (LTG) Pt will improve QuickDASH by > 10 points to a score <37/100. LTG Duration 6-8 weeks MMT Impairment MMT Client Account Manager Goal (LTG) Pt will have 4/5 or greater during MMT of R shoulder into flexion, abduction, and/or ER. LTG Duration 6-8 weeks AROM Impairment AROM Short Term Goal (STG) Pt will be able to raise arm in flexion to 150 degrees and/ or abduction to 160 degrees c/ pain <3/10. STG Duration 3 weeks [facility] Goal (LTG) Pt will have ROM within 5 degrees for L and R shoulder c / pain <3/10. LTG Duration 6-8 weks HEP Impairment HEP Short Term Goal (STG) Pt will report performing HEP >3 days/week. STG Duration 3 weeks. Client Account Manager Goal (LTG) Pt will report performing HEP >3 days/week. LTG Duration 6-8 weeks Assessment Summary Assessment Pt tolerated session well. Reported discomfort during s/l ER but not during any other movements. Worked on a variety of shoulder exercises with emphasis on full scapular mobility into protraction, retraction, and upward rotation. Physical Therapy Plan Frequency and Duration Frequency of Treatment 2x/Week Duration of treatment (weeks) 10 Plan of Care Start Date 01/10/23 Plan of Care End Date 04/10/23 Therapeutic Interventions Therapeutic Interventions Home Exercise Program,Joint Mobilizations,Manual Therapy, Neuromuscular Re-education, Patient/Caregiver Education, Self-Care/Home Management,Soft Tissue Mobilization,Taping, Therapeutic Activities, Therapeutic Exercises Modalities Biofeedback,Cold Pack/Ice Massage,Electric Stimulation, Hot Packs,Ultrasound Next Visit Focus/Plan Next Note Type Treatment Note Next Visit Plan unilateral row, ER iso @ 90, pec fly, DB lime puller?, fwd raises
--- NOTE | 2023-02-13 17:15 | PT.OTN ---
Current Diagnoses Other chronic pain (02/13/23) Pain in unspecified shoulder (02/13/23) Physical Therapy Treatment Note PT-OP-A Visit Information Start: 01/10/23 16:05 Freq: Status: Active Protocol: Document 02/13/23 17:12 ED (Rec: 02/13/23 17:15 ED [id number]) Out-Patient Physical Therapy Visit Information Visit Information Visit Type Treatment Note Visit Start Time 16:45 Visit Stop Time 17:15 Total Visit Minutes 30 Visit Number 6 PT-OP-B Current Condition Start: 01/10/23 16:05 Freq: Status: Active Protocol: Document 01/10/23 17:31 ED (Rec: 01/10/23 17:41 ED [id number]) Current Condition History of Current Condition Onset Date 2015 Current Complaints R shoulder History of Current Condition pt states that he fell on his outstretched arm in 2015 that resulted in a labral tear and possible fracture of his glenoid or humerus; he does not remember all the details from his old MRI. He has had PT before that helped somewhat . This week has been good for his arm but has had recent weeks where he is unable to lift it past 90 degrees. He does lift weights but has had to modify his routine d/t shoulder weakness and pain. He is hoping to get an MRI and needed to do 6 weeks of PT first. 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 Treatment Goals Patient/Caregiver Goals Have use of arm c/o pain including throwing a ball and fishing PT-OP-C Subjective Start: 01/10/23 17:30 Freq: Status: Active Protocol: Document 02/13/23 17:12 ED (Rec: 02/13/23 17:15 ED [id number]) OP-PT Subjective Patient Comments Patient Comments Pt is pretty adamant that he wants an MRI and subsequent shoulder surgery. States that he wants to be able to do all stuff for his shoulder in regards to daily activities. PT-OP-K Range of Motion Start: 01/10/23 16:05 Freq: Status: Active Protocol: Document 01/10/23 17:31 ED (Rec: 01/10/23 17:41 ED [id number]) Shoulder Goniometric Range of Motion Shoulder Left Active Shoulder ROM WFL Yes Testing Position Sitting Flexion 160 Abduction 170 External Rotation at 90 degrees 80 Abduction Right Active Shoulder ROM WFL Yes Testing Position Sitting Flexion 135 Abduction 155 External Rotation at 90 degrees 60 Abduction PT-OP-L Special Tests Start: 01/10/23 16:05 Freq: Status: Active Protocol: Document 01/10/23 17:31 ED (Rec: 01/10/23 17:41 ED [id number]) Special Tests Shoulder Special Tests Biceps Load II Test Test Results + PT-OP-M Strength Start: 01/10/23 16:05 Freq: Status: Active Protocol: Document 01/10/23 17:31 ED (Rec: 01/10/23 17:41 ED [id number]) Shoulder Strength Shoulder Manual Muscle Testing Right Flexion 4- Good- Abduction (C5) 4- Good- External Rotation 3+ Fair+ PT-OP-Q Treatments Start: 01/10/23 16:05 Freq: Status: Active Protocol: Document 02/13/23 17:12 ED (Rec: 02/13/23 17:15 ED [id number]) Therapeutic Exercises Standing Exercises bicep curl Standing Exercise Name decline bicep curl Resistance L1 Equipment Used cable column Reps/Minutes 1x20 shoulder raises Standing Exercise Name fwd raise Resistance L1 Equipment Used cable column Reps/Minutes 2x10 Comments anterior shoulder discomfort IR Standing Exercise Name ball throws Resistance 1# ball Equipment Used trampoline Reps/Minutes 3x20 face pull Standing Exercise Name high row Resistance L3 Equipment Used lat pull down Reps/Minutes 3x10 PT-OP-T Assessment and Plan Start: 01/10/23 16:05 Freq: Status: Active Protocol: Document 02/13/23 17:12 ED (Rec: 02/13/23 17:15 ED [id number]) Physical Therapy Assessment Goals QuickDASH Alf Goal (LTG) Pt will improve QuickDASH by > 10 points to a score <37/100. LTG Duration 6-8 weeks MMT Impairment MMT Alf Goal (LTG) Pt will have 4/5 or greater during MMT of R shoulder into flexion, abduction, and/or ER. LTG Duration 6-8 weeks AROM Impairment AROM Short Term Goal (STG) Pt will be able to raise arm in flexion to 150 degrees and/ or abduction to 160 degrees c/ pain <3/10. STG Duration 3 weeks Alf Goal (LTG) Pt will have ROM within 5 degrees for L and R shoulder c / pain <3/10. LTG Duration 6-8 weks HEP Impairment HEP Short Term Goal (STG) Pt will report performing HEP >3 days/week. STG Duration 3 weeks. Computer Network And Systems Engineer Goal (LTG) Pt will report performing HEP >3 days/week. LTG Duration 6-8 weeks Assessment Summary Assessment Pt complained of anterior proximal shoulder pain when performing forward raises using cable system. PT informed patient it may be proximal bicep tendinopathy so encouraged him to perform decline bicep curls at the gym to increase load to biceps tendon. Pt sounds like he strongly wants an MRI and shoulder surgery. Physical Therapy Plan Frequency and Duration Frequency of Treatment 2x/Week Duration of treatment (weeks) 10 Plan of Care Start Date 01/10/23 Plan of Care End Date 04/10/23 Therapeutic Interventions Therapeutic Interventions Home Exercise Program,Joint Mobilizations,Manual Therapy, Neuromuscular Re-education, Patient/Caregiver Education, Self-Care/Home Management,Soft Tissue Mobilization,Taping, Therapeutic Activities, Therapeutic Exercises Modalities Biofeedback,Cold Pack/Ice Massage,Electric Stimulation, Hot Packs,Ultrasound Next Visit Focus/Plan Next Note Type Treatment Note Next Visit Plan unilateral row, ER iso @ 90, pec fly, DB inspector government property?, fwd raises
--- NOTE | 2023-02-18 17:23 | PT.OTN ---
Current Diagnoses Other chronic pain (02/18/23) Pain in unspecified shoulder (02/18/23) Physical Therapy Treatment Note PT-OP-A Visit Information Start: 01/10/23 16:05 Freq: Status: Active Protocol: Document 02/18/23 17:21 ED (Rec: 02/18/23 17:23 ED [id number]) Out-Patient Physical Therapy Visit Information Visit Information Visit Type Treatment Note Visit Start Time 16:45 Visit Stop Time 17:15 Total Visit Minutes 30 Visit Number 7 PT-OP-B Current Condition Start: 01/10/23 16:05 Freq: Status: Active Protocol: Document 01/10/23 17:31 ED (Rec: 01/10/23 17:41 ED [id number]) Current Condition History of Current Condition Onset Date 2015 Current Complaints R shoulder History of Current Condition pt states that he fell on his outstretched arm in 2015 that resulted in a labral tear and possible fracture of his glenoid or humerus; he does not remember all the details from his old MRI. He has had PT before that helped somewhat . This week has been good for his arm but has had recent weeks where he is unable to lift it past 90 degrees. He does lift weights but has had to modify his routine d/t shoulder weakness and pain. He is hoping to get an MRI and needed to do 6 weeks of PT first. 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 Treatment Goals Patient/Caregiver Goals Have use of arm c/o pain including throwing a ball and fishing PT-OP-C Subjective Start: 01/10/23 17:30 Freq: Status: Active Protocol: Document 02/18/23 17:21 ED (Rec: 02/18/23 17:23 ED [id number]) OP-PT Subjective Patient Comments Patient Comments Pt is pretty adamant that he wants an MRI and subsequent shoulder surgery. States that he wants to be able to do all stuff for his shoulder in regards to daily activities. He states he likely only has 1 more session left; he is under the impression that he only gets 6 or 8 PT visits/ year. PT-OP-K Range of Motion Start: 01/10/23 16:05 Freq: Status: Active Protocol: Document 01/10/23 17:31 ED (Rec: 01/10/23 17:41 ED [id number]) Shoulder Goniometric Range of Motion Shoulder Left Active Shoulder ROM WFL Yes Testing Position Sitting Flexion 160 Abduction 170 External Rotation at 90 degrees 80 Abduction Right Active Shoulder ROM WFL Yes Testing Position Sitting Flexion 135 Abduction 155 External Rotation at 90 degrees 60 Abduction PT-OP-L Special Tests Start: 01/10/23 16:05 Freq: Status: Active Protocol: Document 01/10/23 17:31 ED (Rec: 01/10/23 17:41 ED [id number]) Special Tests Shoulder Special Tests Biceps Load II Test Test Results + PT-OP-M Strength Start: 01/10/23 16:05 Freq: Status: Active Protocol: Document 01/10/23 17:31 ED (Rec: 01/10/23 17:41 ED [id number]) Shoulder Strength Shoulder Manual Muscle Testing Right Flexion 4- Good- Abduction (C5) 4- Good- External Rotation 3+ Fair+ PT-OP-Q Treatments Start: 01/10/23 16:05 Freq: Status: Active Protocol: Document 02/13/23 17:12 ED (Rec: 02/13/23 17:15 ED [id number]) Therapeutic Exercises Standing Exercises bicep curl Standing Exercise Name decline bicep curl Resistance L1 Equipment Used cable column Reps/Minutes 1x20 shoulder raises Standing Exercise Name fwd raise Resistance L1 Equipment Used cable column Reps/Minutes 2x10 Comments anterior shoulder discomfort IR Standing Exercise Name ball throws Resistance 1# ball Equipment Used trampoline Reps/Minutes 3x20 face pull Standing Exercise Name high row Resistance L3 Equipment Used lat pull down Reps/Minutes 3x10 PT-OP-T Assessment and Plan Start: 01/10/23 16:05 Freq: Status: Active Protocol: Document 02/18/23 17:21 ED (Rec: 02/18/23 17:23 ED [id number]) Physical Therapy Assessment Goals QuickDASH Canal Superintendent Goal (LTG) Pt will improve QuickDASH by > 10 points to a score <37/100. LTG Duration 6-8 weeks MMT Impairment MMT Canal Superintendent Goal (LTG) Pt will have 4/5 or greater during MMT of R shoulder into flexion, abduction, and/or ER. LTG Duration 6-8 weeks AROM Impairment AROM Short Term Goal (STG) Pt will be able to raise arm in flexion to 150 degrees and/ or abduction to 160 degrees c/ pain <3/10. STG Duration 3 weeks Senior Care Goal (LTG) Pt will have ROM within 5 degrees for L and R shoulder c / pain <3/10. LTG Duration 6-8 weks HEP Impairment HEP Short Term Goal (STG) Pt will report performing HEP >3 days/week. STG Duration 3 weeks. Canal Superintendent Goal (LTG) Pt will report performing HEP >3 days/week. LTG Duration 6-8 weeks Assessment Summary Assessment Pt able to perform pulling movements and lateral raises with tolerable pain. Pt unable to perform elevated bicep curls but was able to perform neutral position bicep curls. PT educated patient that shoulder pain doesn't mean he needs to stop all activity but rather he can modify his activity. Physical Therapy Plan Frequency and Duration Frequency of Treatment 2x/Week Duration of treatment (weeks) 10 Plan of Care Start Date 01/10/23 Plan of Care End Date 04/10/23 Therapeutic Interventions Therapeutic Interventions Home Exercise Program,Joint Mobilizations,Manual Therapy, Neuromuscular Re-education, Patient/Caregiver Education, Self-Care/Home Management,Soft Tissue Mobilization,Taping, Therapeutic Activities, Therapeutic Exercises Modalities Biofeedback,Cold Pack/Ice Massage,Electric Stimulation, Hot Packs,Ultrasound Next Visit Focus/Plan Next Note Type Treatment Note Next Visit Plan unilateral row, ER iso @ 90, pec fly, DB puller through?, fwd raises
--- NOTE | 2023-02-20 17:18 | PT.OPDS ---
Current Diagnoses Other chronic pain (02/20/23) Pain in unspecified shoulder (02/20/23) Visit Care Team Role Provider Type Liss Pandya MD Primary Care Provider Physician Specialty: Family Practice Obstetrics Address: [address] [place] [address], [id number] Email: [email or web address] Clarence Arreola DO Family Provider Physician Specialty: Family Practice Address: [address] [place] [address], [id number] Email: Kayla Bradley PA-C Attending Provider Advanced Scrap Drop Engineer Referring Provider Specialty: Medical Wound Care Address: [address] [place] [address], [id number] Email: [email or web address] Visit Number Visit Number 8 Discharge Summary PT-OP-B Current Condition Start: 01/10/23 16:05 Freq: Status: Active Protocol: Document 01/10/23 17:31 ED (Rec: 01/10/23 17:41 ED [id number]) Current Condition History of Current Condition Onset Date 2015 Current Complaints R shoulder History of Current Condition pt states that he fell on his outstretched arm in 2016 that resulted in a labral tear and possible fracture of his glenoid or humerus; he does not remember all the details from his old MRI. He has had PT before that helped somewhat . This week has been good for his arm but has had recent weeks where he is unable to lift it past 90 degrees. He does lift weights but has had to modify his routine d/t shoulder weakness and pain. He is hoping to get an MRI and needed to do 6 weeks of PT first. 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 Treatment Goals Patient/Caregiver Goals Have use of arm c/o pain including throwing a ball and fishing PT-OP-C Subjective Start: 01/10/23 17:30 Freq: Status: Active Protocol: Document 02/20/23 17:14 ED (Rec: 02/20/23 17:17 ED [id number]) OP-PT Subjective Patient Comments Patient Comments Pt is pretty adamant that he wants an MRI and subsequent shoulder surgery. States that he wants to be able to do all stuff for his shoulder in regards to daily activities. Is trying to schedule an appointment with an orthopedist but hasn't got that accompished yet. PT-OP-K Range of Motion Start: 01/10/23 16:05 Freq: Status: Active Protocol: Document 01/10/23 17:31 ED (Rec: 01/10/23 17:41 ED [id number]) Shoulder Goniometric Range of Motion Shoulder Left Active Shoulder ROM WFL Yes Testing Position Sitting Flexion 160 Abduction 170 External Rotation at 90 degrees 80 Abduction Right Active Shoulder ROM WFL Yes Testing Position Sitting Flexion 135 Abduction 155 External Rotation at 90 degrees 60 Abduction PT-OP-L Special Tests Start: 01/10/23 16:05 Freq: Status: Active Protocol: Document 01/10/23 17:31 ED (Rec: 01/10/23 17:41 ED [id number]) Special Tests Shoulder Special Tests Biceps Load II Test Test Results + PT-OP-M Strength Start: 01/10/23 16:05 Freq: Status: Active Protocol: Document 01/10/23 17:31 ED (Rec: 01/10/23 17:41 ED [id number]) Shoulder Strength Shoulder Manual Muscle Testing Right Flexion 4- Good- Abduction (C5) 4- Good- External Rotation 3+ Fair+ PT-OP-T Assessment and Plan Start: 01/10/23 16:05 Freq: Status: Active Protocol: Document 02/20/23 17:14 ED (Rec: 02/20/23 17:17 ED [id number]) Physical Therapy Assessment Goals QuickDASH Mandarin Chinese Teacher Goal (LTG) Pt will improve QuickDASH by > 10 points to a score <37/100. LTG Duration 6-8 weeks MMT Impairment MMT Intermediate Goal (LTG) Pt will have 4/5 or greater during MMT of R shoulder into flexion, abduction, and/or ER. LTG Duration 6-8 weeks AROM Impairment AROM Short Term Goal (STG) Pt will be able to raise arm in flexion to 150 degrees and/ or abduction to 160 degrees c/ pain <3/10. STG Duration 3 weeks Mandarin Chinese Teacher Goal (LTG) Pt will have ROM within 5 degrees for L and R shoulder c / pain <3/10. LTG Duration 6-8 weks HEP Impairment HEP Short Term Goal (STG) Pt will report performing HEP >3 days/week. STG Duration 3 weeks. Mandarin Chinese Teacher Goal (LTG) Pt will report performing HEP >3 days/week. LTG Duration 6-8 weeks Assessment Summary Assessment PT will be discharged from PT at this time. Pt wanted to try PT but ultimately believes he requires surgery so he can return to his PLOF and perform daily, occupational, and recreational activities without pain. Pt reported some improvement in his shoulder with PT but was still limited in many activities. His pain is consistent with a labral pathology and when he did have pain during movements it was typically felt in the deep anterior portion of his shoulder. PT educated patient on different strategies to strength train within his capabilities and pain. Physical Therapy Plan Discharge Physical Therapy Discharge Reasons Plateau in Progress
== END 2023-02-25 08:39 | disposition home or self-care (01) ==
LOC: PHYS 16:45
PROVIDERS: Family Provider Family Medicine; PCP Student in an Organized Health Care Education/Training Program; Referring Provider Physician Assistant; Visit Provider Physician Assistant
DX: M25.519 Pain in unspecified shoulder (principal); G89.29 Other chronic pain
CPT/HCPCS: 97110; 97161

== ENCOUNTER 2023-03-03 00:35 | Emergency (ER) | payer OTHER, MEDICAID, SELFPAY ==
[2023-03-03] VITALS (8 sets, daily range): BP systolic 130–150; BP diastolic 83–96; PULSE 84–89; RESP 16–20; TEMP 36.9; O2SAT 94–97; BMI 46.0
--- NOTE | 2023-03-03 02:53 | ED.LOWEXIN ---
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 There is an approximately 1 cm laceration. With pressure the pain was initially controlled and he felt that the wound was going to heal by itself however after going to bed he woke up with severe pain comes in for further evaluation. The bleeding is controlled the wound is deep enough that a suture will be appropriate and as it is now almost 8 hours since the wound, it is a deeper wound into the midportion of the foot I am going to have him complete 5 days of Keflex. He is neurovascularly intact passed the wound. There is no drainage from. Related Data Previous Rx's Medication Instructions Recorded trazodone 50 mg tablet 50 mg PO DAILY insomnia #30 tabs 02/06/23 cephalexin 500 mg capsule 500 mg PO TID #15 caps 03/03/23 Allergies Allergy/AdvReac Type Severity Reaction Status Date / Time milk [MILK] Allergy Unknown Verified 12/12/22 15:20 ICE CREAM Allergy Unknown Uncoded 12/12/22 15:20 Review of Systems Review of Systems Narrative: Pertinent positive and negative findings as per HPI Patient History Medical History (Updated 03/03/23 @ 03:27 by Zunilda Cordova MD) Encounter for sterilization Sterilization consult Ventral hernia without obstruction or gangrene Right ankle sprain Knee effusion, left Acute pain of left knee Constipation Diverticulitis Chronic pain of left ankle Right ankle instability BMI 40.0-44.9, adult Depression (~2004) Anxiety (~2003) Shoulder pain (~2015) Chronic back pain (~2013) Ankle pain (~2009) Chicken pox (~1988) Family History Father No problems noted. Mother No problems noted. Social History marital status: number of children: 4 household members: spouse and children leisure activities: exercise Smoking Status: Former smoker alcohol intake: current substance use type: does not use Smoking Status: Former smoker alcohol intake frequency: holidays/special occasions only Substance Use Type: does not use Exam Initial Vital Signs Initial Vital Signs: Vital Signs Temperature 98.5 F 03/03/23 01:00 Pulse Rate 89 03/03/23 01:00 Respiratory Rate 20 03/03/23 01:00 Blood Pressure 130/88 03/03/23 01:00 Pulse Oximetry 96 03/03/23 01:00 Oxygen Delivery Method Room Air 03/03/23 01:00 General: Alert appropriate in no acute distress Respiratory: Able to speak in full sentences, no obvious respiratory distress Skin: No obvious rashes, warm and dry Neurologic: Grossly intact no obvious asymmetries or abnormalities Psych: appropriate insight and affect, cooperative Extremity: There is a 1 cm puncture wound on the dorsum of the foot medial aspect with no wound on the bottom of the foot. He is completely neurovascularly intact. There is no obvious deeper hematoma but there is some swelling throughout the midfoot. Procedures Laceration Repair left foot: Time of procedure: 03:24 Site: lower extremity Side (If applicable): left Description: linear Depth: simple, single layer Local Anesthetic: lidocaine 1% Amount of anesthesia used (mL): 2 Pre-repair: wound explored, deep structures intact and cleansed with chlorhexadine Skin layer closed with: nylon Skin layer suture size: 4-0 Number of sutures: 1 Technique: horizontal mattress Course Vital Signs Vital signs: Vital Signs - 8 hr 03/03/23 01:00 03/03/23 02:09 03/03/23 02:11 Temperature 98.5 F Pulse Rate 89 86 89 Respiratory Rate 20 Blood Pressure 130/88 Pulse Oximetry 96 97 96 Oxygen Delivery Method Room Air 03/03/23 02:11 Temperature Pulse Rate Respiratory Rate Blood Pressure 149/83 H Pulse Oximetry Oxygen Delivery Method MDM - Extremity Injury (Lower) MDM Narrative Medical decision making narrative: CC: Left foot laceration Data collected from: patient, Differential considered: Simple laceration, complex laceration, tendon involvement Exam documented above, pertinent findings include: Simple laceration no evidence of tendon involvement no obvious infection he is neurovascularly intact distally Treatments: Simple horizontal mattress sutures used to reapproximate the 1 cm wound without issues. Discussion: Laceration to the dorsum of the left foot deep enough and it has been long enough since the wound was sustained that I am going to suggest 5 days of Keflex. Sutures can come out in 5-7 days. Clearly reviewed signs and symptoms of deeper wound infection, deeper hematoma, tendon damage, nerve damage and reasons to return to the emergency department. Last tetanus shot was 6 years ago and not updated today. Questions are answered and he is safe for discharge Discharge Plan Departure Patient Disposition: Home Clinical Impression: Laceration of lower extremity Qualifiers: Encounter type: initial encounter Laterality: left Qualified Code(s): S81.812A - Laceration without foreign body, left lower leg, initial encounter Instructions: DI for Laceration Repair -- Simple Activity Restrictions/Additional Instructions: Thank you for coming in today The wound was enough that I do believe a stitch was appropriate. Because it has been a number of hours, it is a deeper puncture type wound and involves her foot I am going to recommend 5 days of Keflex. [facility] Using 400 mg of ibuprofen (2 [id number] pills) and 1 Tylenol every 6 hours can be very helpful in controlling pain. For severe pain you can use 400 mg of ibuprofen and 1 Percocet. I have given you for tablets of Percocet to take home from the emergency department Keeping the foot elevated will help with both swelling and pain control If you notice discharge, increasing swelling through the midfoot, numbness or tingling into your toes or redness extending out from the wound you do need to be re-evaluated Prescriptions: New cephalexin 500 mg capsule 500 mg PO TID Qty: 15 0RF No Action trazodone 50 mg tablet 50 mg PO DAILY Qty: 30 3RF Referrals: Liss Pandya MD [Primary Care Provider] - Stand Alone Forms: Patient Portal/API
[2023-03-03] MEDS: LIDOCAINE 1% 20 ML INJ (03:11)
[2023-03-03] MEDS: OXYCODONE/ACETAMINOPHEN 5/325 TABLET 1 TAB PO (03:15)
[2023-03-03] MEDS: OXYCODONE/APAP 5/325 PREPACK 1 BOTTLE MISC (03:16)
[2023-03-03] MEDS: IBUPROFEN 400 MG TABLET PO (03:16)
== END 2023-03-03 03:43 | disposition home or self-care (01) ==
PROVIDERS: Emergency Provider Emergency Medicine; Family Provider Family Medicine; PCP Student in an Organized Health Care Education/Training Program
DX: S91.312A Laceration without foreign body, left foot, initial encounter (principal); W26.0XXA Contact with knife, initial encounter
CPT/HCPCS: 12001; 99283

== ENCOUNTER → 2023-03-19 17:15 | Outpatient (CLI) | payer OTHER, MEDICAID, SELFPAY ==
--- NOTE | 2023-03-19 17:20 | DI.MRI.S_ITS ---
PROCEDURE: MR SHOULDER RT WO CON INDICATIONS: Pain and immobility TECHNIQUE: Noncontrast oblique coronal T2 fast spin echo with fat saturation, oblique sagittal T1 spin echo and T2 fast spin echo with fat saturation, axial T1 spin echo and T2 fast spin echo with fat saturation through the shoulder. COMPARISON: [facility], MR, SHOULDER WITHOUT CONTRAST, 08/23/2015, 7:48. FINDINGS: Image quality: Excellent. Rotator cuff: Low-grade bursal surface partial-thickness tear involving supraspinatus near musculotendinous junction is seen. Low-grade articular surface partial-thickness tear involving anterior fibers of distal supraspinatus at its insertion on the humeral head is seen extending to musculotendinous junction. Distal infraspinatus and subscapularis tendons are intact. No full-thickness rotator cuff tendon rupture. Sagittal images demonstrate no significant rotator cuff muscle atrophy. Bones and bursae: No bone marrow contusions or fractures. Mild to moderate acromioclavicular joint osteoarthritic changes are seen with joint space narrowing and downward osteophyte formation depressing the musculotendinous junction of supraspinatus. Mild to moderate glenohumeral joint osteoarthritic changes also seen with joint space narrowing, subchondral sclerosis and marginal osteophyte formation. Subcortical cystic changes are noted involving posterior glenoid. There is small amount of joint effusion and subacromial subdeltoid bursal fluid, no gross loose bodies. Capsule and soft tissues: Signal abnormality and fraying of posterior labrum is seen extending from approximately 8 to 10 o'clock position. The long head of the biceps tendon demonstrates normal location and morphology. The rotator interval appears normal, without fibrosis. The coracohumeral ligament is normal in thickness. IMPRESSION: 1. Kmxc-el-hwoehnce acromioclavicular and glenohumeral joint osteoarthritis as above. No fracture or dislocation. Subcortical cystic changes involving posterior glenoid. Small amount of joint effusion and subacromial subdeltoid bursal fluid. No gross loose bodies. 2. Low-grade bursal surface partial-thickness tear involving supraspinatus near musculotendinous junction. Low-grade articular surface partial-thickness tear involving anterior fibers of distal supraspinatus. No full-thickness rotator cuff tendon rupture. 3. Suggestion of posterior labral tear extending from 8-10 o'clock position. Dictated by: Renaldo Burr M.D. on 03/20/2023 at 10:35 Approved by: Renaldo Burr M.D. on 03/20/2023 at 10:49
== END ==
PROVIDERS: Family Provider Family Medicine; PCP Student in an Organized Health Care Education/Training Program; Referring Provider Student in an Organized Health Care Education/Training Program; Visit Provider Student in an Organized Health Care Education/Training Program
DX: M75.111 Incomplete rotator cuff tear or rupture of right shoulder, not specified as traumatic (principal); M19.011 Primary osteoarthritis, right shoulder; M25.411 Effusion, right shoulder; M25.511 Pain in right shoulder
CPT/HCPCS: 73221

== ENCOUNTER → 2023-07-22 15:59 | Outpatient (CLI) | payer OTHER, SELFPAY ==
--- NOTE | 2023-07-23 10:44 | DIET.OUTPTC ---
Dietary Outpatient Consultation Note Consultation Date: 07/22/2023 Assessment: 43 y M nutrition referral for pre-DM and weight management (BMI >40). Bruno reports hx of trialing multiple diets with difficulty sustaining diets, latest diet being Whole30 for 30 days. Uses [facility] to record intake, but high sodium and saturated fat numbers elicit feelings of anxiety and dishonest self-reporting. Currently is not recording, but does like idea of tracking nutrients. Currently not on any specific diet pattern. Recent shoulder surgery. Identifies goals he wants to work on is portion control and having a veggie/fiber based lunch. Difficulty with portion control at meals and excessive intake of snack foods due to boredom and due to experiences of not having food readily available in past. Currently on phentermine which has lead to successful weight loss of 20# since starting. Pt concerned with elevated BP, has at home cuff. PCP aware/following. Started losartan. Pt goals also include reducing/stopping medication intake. 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 Reports stress 6 out of 10. Dietary recall: B-overnight oats (dairy free milk, yogurt, protein powder, fruit) OR eggs and toast L-Burger D-Meat, pasta or potatoes Also has protein bars or shakes Sometimes no breakfast Drinks: Sugar free sparkling water Physical Activity: 3-5x/wk gym Allergies: dairy (ice cream and milk) GI symptoms: Diverticulitis flare ups, last one 2 weeks ago - during flare ups he drinks clear liquid type diet GERD- major triggers include - eating past 7p, alcohol (beer), spicy foods, coffee (has eliminated), and sweets Ht: 5'9 Wt: 138.5 kg BMI: 45.1 UBW: - Weight History: 5% loss in 1 yr (145.83 kg on 08/22/22 to current weight) 6% loss in 2.5 months (147.531 kg on 05/06/23 to current weight) Lab Values: A1c 5.7 on 02/08/23 Nutrition Diagnosis: Nutrition r/t knowledge deficit r/t to no previous nutrition educ as evidenced by pt report Inadequate fiber intake r/t to difficulty consistently have fiber source available as evidenced by diet recall showing insufficient fiber intake compared to recc amounts Interventions: 1. Provided MNT for pre-DM and weight management -Including: Balanced meals/snacks, label reading, addressing barriers to portion control, intuitive eating, diets v. sustainable eating patterns 2. Discussion of nutrients r/t BP Goals: 1. Consistent 3 meals/day and snacks as needed -Add protein source to CHO based snack 2. Vegetable based lunch (salad w/ protein) or addition of vegetable to lunch starting 2-3 days/week Monitoring/Evaluations: goals/barriers, weight, diet recall, BP, related labs F/u in 1 month Electronically Signed by: Camryn Mejía 07/23/23 10:44 Clinical Dietitian [address] [id number]
== END ==
PROVIDERS: Family Provider Family Medicine; PCP Student in an Organized Health Care Education/Training Program
DX: R73.03 Prediabetes (principal); Z71.3 Dietary counseling and surveillance; Z68.42 Body mass index [BMI] 45.0-49.9, adult
CPT/HCPCS: 97802

== ENCOUNTER → 2023-10-18 08:16 | Outpatient (CLI) | payer OTHER, SELFPAY ==
[2023-10-18 09:04] LABS: Add Manual Diff / Slide Review NO; Basophils Absolute Auto 0 /uL (0-100); Basophils Percent Auto 0.6 % (0-2); Eosinophils Absolute Auto 100 /uL (0-450); Hematocrit 46.8 % (41-53); Hemoglobin 16.1 g/dL (13.5-17.5); Lymphocytes Absolute Auto 800 /uL (1100-4500); Lymphocytes Percent Auto 16.1 % (25-40); Mean Corpuscular HGB Conc 34.4 % (30-36); Mean Corpuscular Hemoglobin 29.5 PG (26-34); Mean Corpuscular Volume 85.8 fL (80-100); Monocytes Absolute Auto 900 /uL (0-900); Monocytes Percent Auto 16.9 % (3-14); Neutrophils Absolute Auto 3300 /uL (1500-7000); Neutrophils Percent Auto 64.4 % (50-75); Platelet Count 172 X10^3/uL (150-400); Red Blood Cell Count 5.45 X10^6/uL (4.5-5.9); Red Cell Distribution Width 13.8 % (11.6-14.8); White Blood Cell Count 5.1 X10^3/uL (4.5-11.0)
[2023-10-18 09:09] LABS: Hemoglobin A1C% w Est Avg Glu 5.4 % (4.0-6.0)
[2023-10-18 09:18] LABS: Alanine Aminotransferase 33 IU/L (<50); Albumin 4.1 g/dL (3.5-5.0); Albumin Globulin Ratio 1.6 (1.0-2.8); Alkaline Phosphatase 74 U/L (38-126); Aspartate Aminotransferase 30 IU/L (17-59); BUN Creatinine Ratio 13.8 (6-22); Bilirubin Total 0.6 mg/dL (0.2-1.3); Blood Urea Nitrogen 12 mg/dL (9-20); Calcium 9.4 mg/dL (8.4-10.2); Carbon Dioxide 30 mmol/L (22-32); Chloride 102 mmol/L (98-107); Estimated Glomerular Filt Rate > 60 mL/min (>60); Globulin 2.6 g/dL (1.7-4.1); Glucose 114 mg/dL (70-100); HEMOLYSIS < 15 (0-50); Sodium 136 mmol/L (137-145); Total Protein 6.7 g/dL (6.3-8.2)
[2023-10-23 10:36] LABS: Percent Free Testosterone 3.06 % (1.50-4.20); Testosterone Free 10.28 ng/dL (5.00-21.00)
== END ==
PROVIDERS: Family Provider Family Medicine; PCP Student in an Organized Health Care Education/Training Program; Referring Provider Student in an Organized Health Care Education/Training Program; Visit Provider Student in an Organized Health Care Education/Training Program
DX: N52.9 Male erectile dysfunction, unspecified (principal)
CPT/HCPCS: 36415; 80053; 83036; 84402; 84403; 85025

== ENCOUNTER → 2023-11-19 08:17 | Outpatient (CLI) | payer OTHER, SELFPAY ==
[2023-11-19 09:45] LABS: Appearance Urine UA CLOUDY; Bilirubin Urine UA NEGATIVE (NEGATIVE); Color Urine UA YELLOW; Glucose Urine UA NEGATIVE (Negative); Ketones Urine UA NEGATIVE (NEGATIVE); Leukocyte Esterase Urine UA NEGATIVE (NEGATIVE); Nitrite Urine UA NEGATIVE (Negative); Occult Blood Urine UA TRACE-INTACT (Negative); Protein Urine UA 1+ (Negative); Specific Gravity Urine UA >=1.030 (1.000-1.035); pH Urine UA 5.5 (4.5-8.0)
[2023-11-19 10:18] LABS: Bacteria Urine None Seen; Culture Indicated Urine Cult Not Indicated; RBC Urine 5-10/HPF (0-5/HPF); Squamous Epithelial Cell Urine None Seen (0-5/HPF); Urine Volume 10mL (spun); WBC Urine 0-1/HPF (0-5/HPF)
== END ==
PROVIDERS: Family Provider Family Medicine; PCP Student in an Organized Health Care Education/Training Program; Referring Provider Student in an Organized Health Care Education/Training Program; Visit Provider Student in an Organized Health Care Education/Training Program
DX: R82.90 Unspecified abnormal findings in urine (principal)
CPT/HCPCS: 81001

== ENCOUNTER → 2023-12-16 16:39 | Outpatient (CLI) | payer BC, SELFPAY ==
[2023-12-16 20:59] LABS: Appearance Urine UA CLEAR; Bilirubin Urine UA NEGATIVE (NEGATIVE); Color Urine UA YELLOW; Glucose Urine UA NEGATIVE (Negative); Ketones Urine UA NEGATIVE (NEGATIVE); Leukocyte Esterase Urine UA NEGATIVE (NEGATIVE); Nitrite Urine UA NEGATIVE (Negative); Occult Blood Urine UA NEGATIVE (Negative); Protein Urine UA NEGATIVE (Negative); Specific Gravity Urine UA 1.025 (1.000-1.035); Urobilinogen Urine UA 0.2 E.U./dL (0.2)
[2023-12-16 21:21] LABS: Bacteria Urine None Seen; Culture Indicated Urine Cult Not Indicated; RBC Urine 0-1/HPF (0-5/HPF); Squamous Epithelial Cell Urine 0-1 /HPF (0-5/HPF); Urine Volume 10mL (spun); WBC Urine None Seen (0-5/HPF)
== END ==
PROVIDERS: Family Provider Family Medicine; PCP Student in an Organized Health Care Education/Training Program; Visit Provider Student in an Organized Health Care Education/Training Program
DX: R82.90 Unspecified abnormal findings in urine (principal)
CPT/HCPCS: 81001

== ENCOUNTER → 2024-05-27 06:53 | Outpatient (CLI) | payer BC, SELFPAY ==
--- NOTE | 2024-05-27 06:54 | DI.ECHO.S_ITS ---
[facility] : : [address] : : [place] : : [id number] : : Phone: [phone] Echocardiogram Report + + :Name: ÁLVARO ROWLEY Study Date: 05/27/2024 Height: 69 in : :[facility] ReadingLocation: Weight: 285 lb : : Gender: Male BSA: 2.4 m2 : :: 1980 Age: 44 yrs BP: 143/100 mmHg: :Reason For Study: HYPERTENSION : :Ordering Physician: : :MICHELLE KOCH Performed By: Omar Gaona : :Referring: MICHELLE KOCH : + + Interpretation Summary 1) Normal left ventricular thickness, size, wall motion, and systolic function (EF 55-60%). 2) Mildly enlarged right ventricle with normal function. 3) No significant valvular abnormalities. 4) No prior Echo available for comparison. Procedure: A two-dimensional transthoracic echocardiogram with color flow and Doppler was performed. The study quality was technically good. There is no prior echocardiogram noted for this patient. The patient was in normal sinus rhythm during the exam. Left Ventricle: The left ventricle is normal in size. There is normal left ventricular wall thickness. There is no ventricular septal defect visualized. The ejection fraction is estimated to be 55-60%. There are no obvious focal wall motion abnormalities noted but poor endocardial definition reduces the sensitivity for the detection of such. Diastolic parameters suggest probable normal left ventricular diastolic function and normal filling pressures. Right Ventricle: The right ventricle is mildly dilated. The right ventricular systolic function is normal. Atria: The left atrial size is normal. Right atrial size is normal. There is no Doppler evidence for an atrial septal defect. Mitral Valve: The mitral valve leaflets appear normal. There is no evidence of stenosis, fluttering, or prolapse. There is trace mitral regurgitation. Aortic Valve: The aortic valve is trileaflet. The aortic valve opens well. There is no aortic valve stenosis. No aortic regurgitation is present. Tricuspid Valve: The tricuspid valve leaflets are thin and pliable. No tricuspid regurgitation. Pulmonary artery pressures cannot be estimated because of the lack of a measurable TR jet velocity. Pulmonic Valve: The pulmonic valve leaflets are thin and pliable; valve motion is normal. There is trace pulmonic regurgitation. Great Vessels: The aortic root is normal size. The dimensions of the ascending aorta are normal. The pulmonary artery is normal size. The IVC is of normal diameter and collapses greater than 50% with a sniff. This suggests a low right atrial pressure of 3 mm Hg. Pericardium/ Pleura There is no pericardial effusion. There is no pleural effusion. MMode/2D Measurements & Calculations LVIDd: 5.3 cm LVOT diam: 2.2 cm LVIDs: 3.9 cm Ao root diam: 3.5 cm FS: 27.1 % asc Aorta Diam: 3.2 cm EPSS: 0.77 cm Ao Arch Diam (Prox Trans): 2.3 cm IVSd: 0.99 cm LVPWd: 1.0 cm LV anna. diameter/BSA (cm/m^2): 2.2 LV sys. diameter/BSA (cm/m^2): 1.6 LA A2 area: 12.8 cm2 RA long axis: 4.6 cm LA A4 area: 18.8 cm2 RA area: 10.9 cm2 LA length (vol): 5.7 cm RA vol: 21.7 ml LA vol: 36.1 ml RA : 9.0 ml/m2 LA vol index: 15.0 ml/m2 IVC diam: 1.5 cm RVD1 (basal): 4.8 cm RVD2 (mid): 4.1 cm TAPSE: 2.1 cm Doppler Measurements & Calculations Ao V2 max: 123.8 cm/sec LVOT Max Sharif: 75.6 cm/sec Ao V2 mean: 89.5 cm/sec LV V1 max P.3 mmHg Ao max P.1 mmHg LV V1 VTI: 17.7 cm Ao mean P.5 mmHg HEENA(I,D): 3.2 cm2 Ao V2 VTI: 21.8 cm HEENA(V,D): 2.4 cm2 sev ratio: 0.81 HEENA indexed to BSA (cm^2/m^2): 1.3 MV E max sharif: 68.4 cm/sec PA V2 max: 65.9 cm/sec MV A max sharif: 54.5 cm/sec PA V2 mean: 43.7 cm/sec MV E/A: 1.3 PA mean P.87 mmHg Med Peak E' Sharif: 6.7 cm/sec PA pr(Accel): 27.6 mmHg E/E' med: 10.2 Lat Peak E' Sharif: 9.5 cm/sec E/E' lat: 7.2 E/e' average: 8.7 MV dec time: 0.21 sec SV(LVOT): 70.1 ml Reading Physician:12:21 PM
== END ==
PROVIDERS: Family Provider Family Medicine; PCP Student in an Organized Health Care Education/Training Program; Referring Provider Student in an Organized Health Care Education/Training Program; Visit Provider Student in an Organized Health Care Education/Training Program
DX: I10 Essential (primary) hypertension (principal)
CPT/HCPCS: 93306

== ENCOUNTER → 2024-08-26 08:22 | Outpatient (CLI) | payer BC, SELFPAY ==
[2024-08-26 08:57] LABS: Cholesterol 188 mg/dL (140-199); HDL Cholesterol 72 mg/dL (40-60); LDL Cholesterol Calculated 94 mg/dL (<100); Triglycerides 112 mg/dL (35-150)
[2024-08-26 09:51] LABS: Creatinine Urine Random 161.71 mg/dL
== END ==
PROVIDERS: Family Provider Family Medicine; PCP Student in an Organized Health Care Education/Training Program; Referring Provider Student in an Organized Health Care Education/Training Program; Visit Provider Student in an Organized Health Care Education/Training Program
DX: I10 Essential (primary) hypertension (principal)
CPT/HCPCS: 36415; 80061; 82043; 82570